=== PATIENT | female | born 1955 | race Caucasian/White ===

== ENCOUNTER 2020-09-05 15:08 | Emergency (ER) | payer MEDICAID ==
[~2020-09-05] VITALS: Ht 157.5 cm; Wt 80.0 kg
[2020-09-05] MEDS ORDERED: CARV3.1231 PO (15:16)
[2020-09-05] MEDS ORDERED: FURO-152 PO (15:17)
[2020-09-05] MEDS ORDERED: MECLIZINE HCL 25 MG TABLET PO ONE (15:45)
[2020-09-05] MEDS ORDERED: ONDANSETRON HCL 4 MG/2 ML VIAL IVP ONE (15:45)
[2020-09-05] MEDS ORDERED: ACETAMINOPHEN 500 MG TABLET PO ONE (15:45)
[2020-09-05] MEDS ORDERED: SODIUM CHLORIDE 0.9% 1,000 ML IV ONE (15:45)
[2020-09-05 16:10] LABS: BASOPHILS % (AUTO) 0.2 % (0.0-2.0); EOSINOPHILS % (AUTO) 4.5 % (1.0-6.0); HEMATOCRIT 34.4 % (36-46); HEMOGLOBIN 10.9 g/dL (12.0-16.0); LYMPHOCYTES # (AUTO) 1.4 K/uL (1.0-4.8); LYMPHOCYTES % (AUTO) 27.3 % (22.0-44.0); MEAN CORPUSCULAR HEMOGLOBIN 25.7 pg (26.0-34.0); MEAN CORPUSCULAR HGB CONC 31.5 G/dL (31.0-37.0); MEAN CORPUSCULAR VOLUME 82 fL (80-100); MONOCYTES # (AUTO) 0.5 K/uL (0.1-1.0); MONOCYTES % (AUTO) 9.3 % (2.0-9.0); NEUTROPHILS # (AUTO) 3.1 K/uL (1.8-7.7); NEUTROPHILS % (AUTO) 58.7 % (40.0-70.0); PLATELET COUNT (AUTO) 214 K/uL (150-450); RED BLOOD CELL COUNT(AUTO) 4.22 MIL/uL (4.00-5.20); RED CELL DISTRIBUTION WIDTH 16.2 % (11.5-14.5)
[2020-09-05 16:22] LABS: CALCIUM, TOTAL 8.8 mg/dL (8.8-10.5); CREATININE 2.75 mg/dL (0.60-1.30); POTASSIUM 3.3 mmol/L (3.5-5.1)
[2020-09-05 16:27] LABS: BILIRUBIN,TOTAL 0.5 mg/dL (0.1-1.0); TOTAL PROTEIN, SERUM 7.1 g/dL (6.4-8.2)
[2020-09-05 17:41] LABS: COVID AG,FIA SOURCE NASOPHARYNGEAL
[2020-09-05 19:06] VITALS: BP 115/77
== END 2020-09-05 19:55 | disposition home or self-care (01) ==
LOC: EMS 15:11
DX: I42.9 Cardiomyopathy, unspecified (principal); I13.0 Hypertensive heart and chronic kidney disease with heart failure and stage 1 through stage 4 chronic kidney disease, or unspecified chronic kidney disease; N18.9 Chronic kidney disease, unspecified; I50.9 Heart failure, unspecified; I25.10 Atherosclerotic heart disease of native coronary artery without angina pectoris; R42 Dizziness and giddiness; Z20.822 Contact with and (suspected) exposure to COVID-19; Z79.899 Other long term (current) drug therapy
CPT/HCPCS: 36415; 70450; 71045; 80053; 83690; 83880; 84484; 85025; 87426; 93005; 96361; 96374; 99285; J2405; J7030

== ENCOUNTER 2020-09-18 21:18 | Inpatient (IN) | payer MEDICAID ==
[~2020-09-18] VITALS: Ht 160 cm; Wt 65.8 kg
[~2020-09-18 21:18] MED LIST: CARV3.1231 PO; FURO-152 PO
[2020-09-18 21:49] LABS: BASOPHILS % (AUTO) 0.1 % (0.0-2.0); EOSINOPHILS % (AUTO) 0.6 % (1.0-6.0); HEMATOCRIT 23.5 % (36-46); HEMOGLOBIN 7.5 g/dL (12.0-16.0); LYMPHOCYTES % (AUTO) 12.9 % (22.0-44.0); MEAN CORPUSCULAR HEMOGLOBIN 26.8 pg (26.0-34.0); MEAN CORPUSCULAR HGB CONC 31.8 G/dL (31.0-37.0); MEAN CORPUSCULAR VOLUME 84 fL (80-100); MONOCYTES # (AUTO) 0.3 K/uL (0.1-1.0); MONOCYTES % (AUTO) 3.8 % (2.0-9.0); NEUTROPHILS # (AUTO) 6.5 K/uL (1.8-7.7); NEUTROPHILS % (AUTO) 82.6 % (40.0-70.0); PLATELET COUNT (AUTO) 169 K/uL (150-450); RED BLOOD CELL COUNT(AUTO) 2.79 MIL/uL (4.00-5.20); RED CELL DISTRIBUTION WIDTH 17.3 % (11.5-14.5)
[2020-09-18 22:01] LABS: INR 1.1 (0.9-1.1); PROTHROMBIN TIME 11.4 SEC (9.4-11.6)
[2020-09-18 22:04] LABS: ALBUMIN 2.4 g/dL (3.4-5.0); BILIRUBIN,TOTAL 0.4 mg/dL (0.1-1.0); CALCIUM, TOTAL 8.1 mg/dL (8.8-10.5); CREATININE 2.23 mg/dL (0.60-1.30); POTASSIUM 4.4 mmol/L (3.5-5.1); TOTAL PROTEIN, SERUM 5.5 g/dL (6.4-8.2)
[2020-09-18 22:06] LABS: TROPONIN I 0.05 ng/mL (0.00-0.05)
[2020-09-18 22:07] LABS: LACTIC ACID 0.9 mmol/L (0.4-2.0)
[2020-09-18] MEDS ORDERED: ASPIRIN 81 MG CHEWABLE TABLET PO ONE (22:45)
[2020-09-18 22:47] LABS: APPEARANCE,URINE CLEAR (CLEAR); BILIRUBIN,URINE NEGATIVE (NEGATIVE); GLUCOSE, URINE (UA) NEGATIVE (NEGATIVE); KETONES,URINE NEGATIVE (NEGATIVE); LEUKOCYTE ESTERASE ,URINE NEGATIVE (NEGATIVE); NITRATE,URINE NEGATIVE (NEGATIVE); OCCULT BLOOD,URINE NEGATIVE (NEGATIVE); PH,URINE 5.5 (5.0-8.0); PROTEIN,URINE NEGATIVE (NEGATIVE); UROBILINOGEN,URINE 0.2 mg/dL (<=1.0)
[2020-09-18 22:52] LABS: AMPHET/METH SCREEN,URINE NEGATIVE (NEGATIVE); BARBITURATE SCREEN, URINE NEGATIVE (NEGATIVE); BENZODIAZEPINES SCREEN,URINE NEGATIVE (NEGATIVE); CANNABINOID SCREEN,URINE NEGATIVE (NEGATIVE); COCAINE SCREEN,URINE NEGATIVE (NEGATIVE); METHADONE SCREEN, URINE NEGATIVE (NEGATIVE); OPIATE SCREEN,URINE POSITIVE (NEGATIVE)
[2020-09-18 22:56] LABS: PHENCYCLIDINE SCREEN,URINE NEGATIVE (NEGATIVE)
[2020-09-18] MEDS ORDERED: ASPIRIN 300 MG RECTAL SUPPOSITORY PR ONE (23:45)
[2020-09-18] MEDS ORDERED: ONDANSETRON HCL 4 MG/2 ML VIAL IVP PRN (23:45)
[2020-09-18] MEDS ORDERED: ACETAMINOPHEN 325 MG TABLET PO PRN (23:45)
[2020-09-18] MEDS: CARVEDILOL 3.125 MG TABLET PO SCH (23:57)
[2020-09-19] VITALS (19 sets, daily range): BP systolic 74–133; BP diastolic 45–72
[2020-09-19] MEDS: HEPARIN SODIUM,PORCINE 5,000 UNITS/ML VIAL SQ SCH ×2 (00:06→08:00)
[2020-09-19 00:32] LABS: % IRON SATURATION 22.5 % (22-44)
[2020-09-19 00:39] LABS: COVID AG,FIA SOURCE NASOPHARYNGEAL
[2020-09-19 07:59] LABS: BASOPHILS % (AUTO) 0.2 % (0.0-2.0); EOSINOPHILS % (AUTO) 1.1 % (1.0-6.0); HEMATOCRIT 21.7 % (36-46); LYMPHOCYTES # (AUTO) 1.2 K/uL (1.0-4.8); LYMPHOCYTES % (AUTO) 15.4 % (22.0-44.0); MEAN CORPUSCULAR HEMOGLOBIN 26.6 pg (26.0-34.0); MEAN CORPUSCULAR HGB CONC 31.6 G/dL (31.0-37.0); MEAN CORPUSCULAR VOLUME 84 fL (80-100); MONOCYTES # (AUTO) 0.3 K/uL (0.1-1.0); MONOCYTES % (AUTO) 3.7 % (2.0-9.0); NEUTROPHILS # (AUTO) 6.1 K/uL (1.8-7.7); NEUTROPHILS % (AUTO) 79.6 % (40.0-70.0); PLATELET COUNT (AUTO) 194 K/uL (150-450); RED BLOOD CELL COUNT(AUTO) 2.58 MIL/uL (4.00-5.20)
[2020-09-19 08:04] LABS: CREATININE 2.07 mg/dL (0.60-1.30); HEMOGLOBIN 6.9 g/dL (12.0-16.0); POTASSIUM 4.9 mmol/L (3.5-5.1)
[2020-09-19 08:09] LABS: CHOL/HDL RATIO 4.8 (3.9-5.7)
[2020-09-19] MEDS: CARVEDILOL 3.125 MG TABLET PO SCH (09:00)
[2020-09-19] MEDS ORDERED: FUROSEMIDE 20 MG TABLET PO SCH (09:00)
[2020-09-19] MEDS ORDERED: ONDANSETRON HCL 4 MG/2 ML VIAL IVP PRN (11:45)
[2020-09-19] MEDS ORDERED: MORPHINE SULFATE 2 MG/ML SYRINGE IVP PRN (11:45)
[2020-09-19] MEDS ORDERED: MAGNESIUM HYDROXIDE SUSPENSION 30 ML UDCUP PO PRN (11:45)
[2020-09-19] MEDS ORDERED: ZOLPIDEM TARTRATE 5 MG TABLET PO PRN (11:45)
[2020-09-19] MEDS ORDERED: BISACODYL 10 MG RECTAL RECTAL SUPPOSITORY PR PRN (11:45)
[2020-09-19] MEDS ORDERED: ACETAMINOPHEN 325 MG TABLET PO PRN (11:45)
[2020-09-19] MEDS ORDERED: HYDROCODONE/ACETAMINOPHEN 5-325 MG TABLET PO PRN (11:45)
[2020-09-19] MEDS ORDERED: SODIUM CHLORIDE 0.9% 500 ML IV ONE (12:00)
[2020-09-19] MEDS ORDERED: SODIUM CHLORIDE 0.9% 1,000 ML ONE (13:17)
[2020-09-19] MEDS: PANTOPRAZOLE SODIUM 80 MG in SODIUM CHLORIDE 0.9% 100 ML IV SCH ×2 (16:48→22:27)
[2020-09-19 17:29] LABS: HEMATOCRIT 25.2 % (36-46)
[2020-09-19 18:02] LABS: CALCIUM, TOTAL 8.1 mg/dL (8.8-10.5); CREATININE 2.24 mg/dL (0.60-1.30); POTASSIUM 4.4 mmol/L (3.5-5.1)
[2020-09-19] MEDS: DOCUSATE SODIUM 100 MG CAPSULE PO SCH (21:00)
[2020-09-19 21:55] LABS: HEMATOCRIT 32.3 % (36-46); HEMOGLOBIN 9.8 g/dL (12.0-16.0)
[2020-09-20] MEDS ORDERED: SODIUM CHLORIDE 0.9% 1,000 ML ONE ×2 (03:54→09:50)
[2020-09-20 04:05] VITALS: BP 122/71
[2020-09-20 06:29] LABS: HEMOGLOBIN 9.5 g/dL (12.0-16.0)
[2020-09-20 07:22] VITALS: BP 116/67
[2020-09-20] MEDS: PANTOPRAZOLE SODIUM 80 MG in SODIUM CHLORIDE 0.9% 100 ML IV SCH ×2 (08:34→20:42)
[2020-09-20] MEDS: DOCUSATE SODIUM 100 MG CAPSULE PO SCH ×2 (08:38→20:42)
[2020-09-20] MEDS ORDERED: PANTOPRAZOLE SODIUM 40 MG DR TABLET PO SCH (09:00)
[2020-09-20] MEDS ORDERED: EPINEPHrine 1:10,000 [1 MG/10 ML] SYRINGE ONE (09:50)
[2020-09-20 12:48] LABS: HEMATOCRIT 28.2 % (36-46); HEMOGLOBIN 8.8 g/dL (12.0-16.0)
[2020-09-20] MEDS ORDERED: SODIUM CHLORIDE 0.45% 1,000 ML IV ONE (13:30)
[2020-09-20] MEDS ORDERED: SODIUM CHLORIDE 0.45% 1,000 ML IV SCH (15:30)
[2020-09-20 16:20] VITALS: BP 137/60
[2020-09-20 17:56] LABS: CALCIUM, TOTAL 8.3 mg/dL (8.8-10.5); CREATININE 2.02 mg/dL (0.60-1.30); MAGNESIUM 1.9 mg/dL (1.80-2.40); PHOSPHORUS 3.5 mg/dL (2.5-4.9); POTASSIUM 3.9 mmol/L (3.5-5.1)
[2020-09-20 19:36] VITALS: BP 106/60
[2020-09-20 20:07] LABS: HEMATOCRIT 25.7 % (36-46); HEMOGLOBIN 8.3 g/dL (12.0-16.0)
[2020-09-20 23:45] VITALS: BP 110/46
[2020-09-21] VITALS (14 sets, daily range): BP systolic 98–148; BP diastolic 57–74
[2020-09-21 05:03] LABS: HEMOGLOBIN 7.9 g/dL (12.0-16.0)
[2020-09-21] MEDS: PANTOPRAZOLE SODIUM 80 MG in SODIUM CHLORIDE 0.9% 100 ML IV SCH (05:11)
[2020-09-21 05:15] LABS: CALCIUM, TOTAL 8.4 mg/dL (8.8-10.5); CREATININE 2.15 mg/dL (0.60-1.30); MAGNESIUM 1.9 mg/dL (1.80-2.40); PHOSPHORUS 3.6 mg/dL (2.5-4.9)
[2020-09-21] MEDS ORDERED: LIDOCAINE/PF 2% 5 ML VIAL IM ONE (05:34)
[2020-09-21] MEDS ORDERED: PROPOFOL 1% 20 ML VIAL IVP ONE (05:34)
[2020-09-21] MEDS: DOCUSATE SODIUM 100 MG CAPSULE PO SCH ×2 (09:00→21:00)
[2020-09-21] MEDS: DEXTROSE 5%-WATER 1,000 ML IV SCH ×2 (13:29→19:48)
[2020-09-21] MEDS ORDERED: SODIUM CHLORIDE 0.9% 250 ML IV ONE (15:01)
[2020-09-22] VITALS (23 sets, daily range): BP systolic 79–132; BP diastolic 39–68
[2020-09-22] MEDS: DEXTROSE 5%-WATER 1,000 ML IV SCH ×2 (05:23→14:59)
[2020-09-22 05:26] LABS: BASOPHILS % (AUTO) 0.2 % (0.0-2.0); EOSINOPHILS % (AUTO) 0.5 % (1.0-6.0); HEMATOCRIT 22.8 % (36-46); HEMOGLOBIN 7.3 g/dL (12.0-16.0); LYMPHOCYTES # (AUTO) 1.3 K/uL (1.0-4.8); LYMPHOCYTES % (AUTO) 14.4 % (22.0-44.0); MEAN CORPUSCULAR HEMOGLOBIN 28.4 pg (26.0-34.0); MEAN CORPUSCULAR HGB CONC 32.1 G/dL (31.0-37.0); MEAN CORPUSCULAR VOLUME 89 fL (80-100); MONOCYTES # (AUTO) 0.7 K/uL (0.1-1.0); MONOCYTES % (AUTO) 7.3 % (2.0-9.0); NEUTROPHILS # (AUTO) 7.1 K/uL (1.8-7.7); NEUTROPHILS % (AUTO) 77.6 % (40.0-70.0); PLATELET COUNT (AUTO) 166 K/uL (150-450); RED BLOOD CELL COUNT(AUTO) 2.58 MIL/uL (4.00-5.20); RED CELL DISTRIBUTION WIDTH 17.2 % (11.5-14.5)
[2020-09-22 05:32] LABS: CALCIUM, TOTAL 8.1 mg/dL (8.8-10.5); CREATININE 2.25 mg/dL (0.60-1.30); POTASSIUM 4.1 mmol/L (3.5-5.1)
[2020-09-22 06:00] LABS: MAGNESIUM 1.8 mg/dL (1.80-2.40); PHOSPHORUS 2.2 mg/dL (2.5-4.9)
[2020-09-22] MEDS: DOCUSATE SODIUM 100 MG CAPSULE PO SCH ×2 (08:24→21:00)
[2020-09-22] MEDS ORDERED: SODIUM CHLORIDE 0.9% 250 ML IV ONE (09:10)
[2020-09-22] MEDS: PANTOPRAZOLE SODIUM 80 MG in SODIUM CHLORIDE 0.9% 100 ML IV SCH ×2 (13:39→21:37)
[2020-09-23] VITALS (14 sets, daily range): BP systolic 86–110; BP diastolic 53–67
[2020-09-23] MEDS: DEXTROSE 5%-WATER 1,000 ML IV SCH ×3 (01:50→15:40)
[2020-09-23 07:20] LABS: BASOPHILS % (AUTO) 0.3 % (0.0-2.0); EOSINOPHILS % (AUTO) 2.9 % (1.0-6.0); HEMATOCRIT 26.9 % (36-46); HEMOGLOBIN 8.5 g/dL (12.0-16.0); LYMPHOCYTES # (AUTO) 1.2 K/uL (1.0-4.8); LYMPHOCYTES % (AUTO) 19.7 % (22.0-44.0); MEAN CORPUSCULAR HEMOGLOBIN 28.7 pg (26.0-34.0); MEAN CORPUSCULAR HGB CONC 31.4 G/dL (31.0-37.0); MEAN CORPUSCULAR VOLUME 92 fL (80-100); MONOCYTES # (AUTO) 0.4 K/uL (0.1-1.0); MONOCYTES % (AUTO) 6.4 % (2.0-9.0); NEUTROPHILS # (AUTO) 4.4 K/uL (1.8-7.7); NEUTROPHILS % (AUTO) 70.7 % (40.0-70.0); PLATELET COUNT (AUTO) 124 K/uL (150-450); RED BLOOD CELL COUNT(AUTO) 2.94 MIL/uL (4.00-5.20); RED CELL DISTRIBUTION WIDTH 16.8 % (11.5-14.5)
[2020-09-23 07:37] LABS: CREATININE 2.28 mg/dL (0.60-1.30); POTASSIUM 3.6 mmol/L (3.5-5.1)
[2020-09-23] MEDS: DOCUSATE SODIUM 100 MG CAPSULE PO SCH ×2 (07:38→21:00)
[2020-09-23] MEDS: PANTOPRAZOLE SODIUM 80 MG in SODIUM CHLORIDE 0.9% 100 ML IV SCH ×2 (07:38→17:58)
[2020-09-23] MEDS ORDERED: SODIUM BICARBONATE [ADULT] 8.4% 50 MEQ/50 ML SYRINGE IVP ONE (10:30)
[2020-09-23] MEDS ORDERED: LORazepam 2 MG/ML VIAL IVP ONE (14:00)
[2020-09-23 15:08] LABS: HEMATOCRIT 22.5 % (36-46); HEMOGLOBIN 7.4 g/dL (12.0-16.0)
[2020-09-23] MEDS ORDERED: SODIUM CHLORIDE 0.9% 500 ML IV ONE ×2 (17:07→17:35)
[2020-09-23] MEDS ORDERED: *CLINICAL-PERIPHERAL PARENTERAL NUTRITION DOSING CLINICAL ONE (17:45)
[2020-09-23] MEDS ORDERED: DEXTROSE 5%-WATER 1,000 ML IV SCH (22:00)
[2020-09-23] MEDS ORDERED: [UNRECOGNIZED DRUG - REMARK] IV SCH ×6 (22:00)
[2020-09-24] VITALS (14 sets, daily range): BP systolic 72–99; BP diastolic 51–61
[2020-09-24] MEDS: PANTOPRAZOLE SODIUM 80 MG in SODIUM CHLORIDE 0.9% 100 ML IV SCH ×3 (03:49→23:02)
[2020-09-24] MEDS ORDERED: SODIUM CHLORIDE 0.9% 1,000 ML IV ONE (04:00)
[2020-09-24 04:30] LABS: BASOPHILS % (AUTO) 0.2 % (0.0-2.0); EOSINOPHILS % (AUTO) 3.4 % (1.0-6.0); HEMATOCRIT 21.4 % (36-46); LYMPHOCYTES # (AUTO) 1.4 K/uL (1.0-4.8); LYMPHOCYTES % (AUTO) 19.2 % (22.0-44.0); MEAN CORPUSCULAR HEMOGLOBIN 29.3 pg (26.0-34.0); MEAN CORPUSCULAR HGB CONC 32.7 G/dL (31.0-37.0); MEAN CORPUSCULAR VOLUME 90 fL (80-100); MONOCYTES # (AUTO) 0.4 K/uL (0.1-1.0); MONOCYTES % (AUTO) 5.2 % (2.0-9.0); NEUTROPHILS # (AUTO) 5.1 K/uL (1.8-7.7); PLATELET COUNT (AUTO) 124 K/uL (150-450); RED BLOOD CELL COUNT(AUTO) 2.38 MIL/uL (4.00-5.20); RED CELL DISTRIBUTION WIDTH 16.9 % (11.5-14.5)
[2020-09-24 04:38] LABS: CALCIUM, TOTAL 7.2 mg/dL (8.8-10.5); CREATININE 2.13 mg/dL (0.60-1.30); MAGNESIUM 1.5 mg/dL (1.80-2.40); PHOSPHORUS 2.1 mg/dL (2.5-4.9)
[2020-09-24] MEDS ORDERED: SODIUM CHLORIDE 0.9% 250 ML IV ONE (06:16)
[2020-09-24] MEDS: POTASSIUM CHL 10 MEQ/WATER 50 ML IV SCH ×4 (06:16→12:15)
[2020-09-24] MEDS ORDERED: MAGNESIUM SULFATE 1 GM in DEXTROSE 5%-WATER 50 ML IV ONE (06:30)
[2020-09-24] MEDS: DOCUSATE SODIUM 100 MG CAPSULE PO SCH ×2 (09:00→20:53)
[2020-09-24] MEDS ORDERED: PANTOPRAZOLE SODIUM 40 MG/VIAL IVP SCH (09:00)
[2020-09-24] MEDS ORDERED: POTASSIUM PHOS,M-BASIC-D-BASIC 10 MMOL in DEXTROSE 5%-WATER 100 ML IV ONE (09:00)
[2020-09-24] MEDS ORDERED: POTASSIUM CHL 10 MEQ/WATER 50 ML IV SCH (09:00)
[2020-09-24] MEDS ORDERED: MAGNESIUM SULFATE 2 GM/WATER 50 ML IV ONE (11:15)
[2020-09-24] MEDS ORDERED: SODIUM PHOS,M-BASIC-D-BASIC 20 MMOL in DEXTROSE 5%-WATER 150 ML IV ONE (11:15)
[2020-09-24] MEDS ORDERED: WATER FOR INJECTION,STERILE 500 ML in DEXTROSE 5%-WATER 500 ML IV SCH (11:15)
[2020-09-24] MEDS ORDERED: SODIUM CHLORIDE 0.9% 1,000 ML IV SCH (11:30)
[2020-09-24 14:06] LABS: INR 1.3 (0.9-1.1); PROTHROMBIN TIME 13.5 SEC (9.4-11.6)
[2020-09-24 15:36] LABS: BASOPHILS % (AUTO) 0.2 % (0.0-2.0); EOSINOPHILS % (AUTO) 2.6 % (1.0-6.0); HEMATOCRIT 25.4 % (36-46); HEMOGLOBIN 8.2 g/dL (12.0-16.0); LYMPHOCYTES % (AUTO) 14.7 % (22.0-44.0); MEAN CORPUSCULAR HEMOGLOBIN 29.2 pg (26.0-34.0); MEAN CORPUSCULAR HGB CONC 32.2 G/dL (31.0-37.0); MEAN CORPUSCULAR VOLUME 91 fL (80-100); MONOCYTES # (AUTO) 0.4 K/uL (0.1-1.0); MONOCYTES % (AUTO) 5.1 % (2.0-9.0); NEUTROPHILS # (AUTO) 5.5 K/uL (1.8-7.7); NEUTROPHILS % (AUTO) 77.4 % (40.0-70.0); PLATELET COUNT (AUTO) 109 K/uL (150-450); RED BLOOD CELL COUNT(AUTO) 2.79 MIL/uL (4.00-5.20); RED CELL DISTRIBUTION WIDTH 16.4 % (11.5-14.5)
[2020-09-24] MEDS ORDERED: SODIUM ACETATE IV SCH ×8 (22:00)
[2020-09-24] MEDS ORDERED: POTASSIUM ACETATE IV SCH ×8 (22:00)
[2020-09-24] MEDS ORDERED: PPN IV SCH ×8 (22:00)
[2020-09-24] MEDS ORDERED: [UNRECOGNIZED DRUG - OTHER] IV SCH ×8 (22:00)
[2020-09-25] VITALS (13 sets, daily range): BP systolic 49–175; BP diastolic 26–75
[2020-09-25] MEDS: DOCUSATE SODIUM 100 MG CAPSULE PO SCH ×2 (09:00→21:00)
[2020-09-25] MEDS: PANTOPRAZOLE SODIUM 80 MG in SODIUM CHLORIDE 0.9% 100 ML IV SCH ×2 (09:11→20:05)
[2020-09-25] MEDS: NOREPINEPHRINE 4 MG/D5%-WATER 250 ML IV PRN ×4 (12:00→22:46)
[2020-09-25 12:42] LABS: BASOPHILS % (AUTO) 0.2 % (0.0-2.0); LYMPHOCYTES # (AUTO) 1.1 K/uL (1.0-4.8); MEAN CORPUSCULAR HGB CONC 32.7 G/dL (31.0-37.0); MEAN CORPUSCULAR VOLUME 92 fL (80-100); MONOCYTES # (AUTO) 0.3 K/uL (0.1-1.0); MONOCYTES % (AUTO) 4.4 % (2.0-9.0); NEUTROPHILS # (AUTO) 5.5 K/uL (1.8-7.7); NEUTROPHILS % (AUTO) 77.4 % (40.0-70.0); PLATELET COUNT (AUTO) 118 K/uL (150-450); RED BLOOD CELL COUNT(AUTO) 1.81 MIL/uL (4.00-5.20); RED CELL DISTRIBUTION WIDTH 16.7 % (11.5-14.5)
[2020-09-25 12:52] LABS: HEMOGLOBIN 5.4 g/dL (12.0-16.0)
[2020-09-25 12:53] LABS: HEMATOCRIT 16.6 % (36-46)
[2020-09-25] MEDS ORDERED: SODIUM CHLORIDE 0.9% 250 ML IV ONE ×2 (12:56→18:23)
[2020-09-25 13:16] LABS: CREATININE 1.99 mg/dL (0.60-1.30); MAGNESIUM 2.3 mg/dL (1.80-2.40); PHOSPHORUS 3.5 mg/dL (2.5-4.9); POTASSIUM 4.2 mmol/L (3.5-5.1)
[2020-09-25] MEDS ORDERED: SODIUM CHLORIDE 0.9% 500 ML IV ONE (13:48)
[2020-09-25] MEDS: ALBUMIN HUMAN 25%-25GM/100ML 100 ML IV SCH ×2 (14:11→21:54)
[2020-09-25] MEDS ORDERED: RAPID SEQUENCE KIT [RSI] 1 EACH KIT MISC ONE (14:13)
[2020-09-25] MEDS ORDERED: DOPamine 400MG/D5W[STANDARD] 250 ML IV ONE (14:26)
[2020-09-25] MEDS ORDERED: METOCLOPRAMIDE HCL 5 MG/ML 2 ML VIAL IVP ONE (14:30)
[2020-09-25] MEDS ORDERED: DOPamine 400MG/D5W[STANDARD] 250 ML IV PRN (15:00)
[2020-09-25] MEDS ORDERED: PHENYLEPHRINE 200 MG/D5%-WATER 250 ML IV PRN (15:00)
[2020-09-25] MEDS ORDERED: PROPOFOL 1000 MG/ISO-OSM 100 ML ONE (15:07)
[2020-09-25 15:56] LABS: ABG A-A DIFF O2 260.9 mmHg (10-20.0); ABG CARBOXYHEMOGLOBIN 0.3 % (0.0-1.5); ABG HCO3 11.5 mmol/L (22.0-26.0); ABG METHEMOGLOBIN 0.5 % (0.0-1.5); ABG OXYGEN CONTENT 13.6 mL/dL (15.0-23.0); ABG OXYGEN SATURATION 99.4 % (95.0-98.0); ABG OXYHEMOGLOBIN 98.6 % (94.0-100.0); ABG PCO2 37 mmHg (35-45); PO2, ARTERIAL BG 416.3 mmHg (79.0-87.0); SOURCE, BLOOD GAS ARTERIAL; TEMPERATURE, FAHRENHEIT, BG 98.1 FAHREN (96.0-98.6)
[2020-09-25 15:57] LABS: ABG PH 7.114 (7.35-7.450); O2 DEVICE,BLOOD GAS VENTILATOR (ROOM AIR); PEEP,BG 5 cm H2O; SITE, BLOOD GAS ARTERIAL LINE; VT, ABG 375 ml
[2020-09-25] MEDS: PROPOFOL 1000 MG/ISO-OSM 100 ML IV PRN ×2 (16:00→22:45)
[2020-09-25] MEDS ORDERED: EPINEPHrine 1:10,000 [1 MG/10 ML] SYRINGE ONE (16:58)
[2020-09-25] MEDS ORDERED: PIPERACILLIN SODIUM/TAZOBACTAM 2.25 GM in DEXTROSE 5%-WATER 50 ML IV SCH (17:00)
[2020-09-25] MEDS ORDERED: HEPARIN SODIUM,PORCINE 1,000 UNITS/ML VIAL IVP ONE (17:15)
[2020-09-25 17:31] LABS: GLUCOSE,POINT OF CARE 196 MG/DL (70-110)
[2020-09-25] MEDS: SODIUM BICARBONATE 150 MEQ in DEXTROSE 5%-WATER 1,000 ML IV SCH (18:25)
[2020-09-25] MEDS ORDERED: POTASSIUM CHLORIDE 15 MEQ in NXSTAGE RFP-402 K0/CA3 5,000 ML IRRIG PRN (18:45)
[2020-09-25 19:39] LABS: HEMATOCRIT 28.4 % (36-46); HEMOGLOBIN 9.3 g/dL (12.0-16.0)
[2020-09-25 20:05] LABS: GLUCOSE,POINT OF CARE 281 MG/DL (70-110)
[2020-09-25] MEDS ORDERED: PANTOPRAZOLE SODIUM 40 MG/VIAL IVP SCH (21:00)
[2020-09-25] MEDS ORDERED: SODIUM ACETATE IV SCH ×8 (22:00)
[2020-09-25] MEDS ORDERED: [UNRECOGNIZED DRUG - OTHER] IV SCH ×8 (22:00)
[2020-09-25] MEDS ORDERED: PPN IV SCH ×8 (22:00)
[2020-09-25] MEDS ORDERED: POTASSIUM ACETATE IV SCH ×8 (22:00)
[2020-09-26] VITALS (11 sets, daily range): BP systolic 112–137; BP diastolic 44–51
[2020-09-26 00:04] LABS: CALCIUM, TOTAL 7.3 mg/dL (8.8-10.5); CREATININE 2.18 mg/dL (0.60-1.30); POTASSIUM 3.1 mmol/L (3.5-5.1)
[2020-09-26 00:08] LABS: MAGNESIUM 1.8 mg/dL (1.80-2.40); PHOSPHORUS 2.9 mg/dL (2.5-4.9)
[2020-09-26] MEDS: PIPERACILLIN/TAZO 3.375 GM/D5W 50 ML IV SCH ×4 (01:05→17:13)
[2020-09-26 02:05] LABS: HEMOGLOBIN 7.8 g/dL (12.0-16.0)
[2020-09-26] MEDS ORDERED: SODIUM CHLORIDE 0.9% 500 ML IV ONE (03:38)
[2020-09-26] MEDS ORDERED: SODIUM CHLORIDE 0.9% 250 ML IV ONE ×2 (03:38→20:25)
[2020-09-26] MEDS: PROPOFOL 1000 MG/ISO-OSM 100 ML IV PRN ×3 (04:08→18:06)
[2020-09-26] MEDS: PANTOPRAZOLE SODIUM 80 MG in SODIUM CHLORIDE 0.9% 100 ML IV SCH ×2 (04:08→15:08)
[2020-09-26] MEDS: POTASSIUM CHLORIDE 20 MEQ in NXSTAGE RFP-402 K0/CA3 5,000 ML IRRIG PRN ×2 (04:09→23:25)
[2020-09-26] MEDS: ALBUMIN HUMAN 25%-25GM/100ML 100 ML IV SCH ×3 (05:14→21:48)
[2020-09-26 05:54] LABS: BASOPHILS % (AUTO) 0.2 % (0.0-2.0); EOSINOPHILS % (AUTO) 1.8 % (1.0-6.0); HEMOGLOBIN 7.7 g/dL (12.0-16.0); LYMPHOCYTES # (AUTO) 1.2 K/uL (1.0-4.8); LYMPHOCYTES % (AUTO) 10.2 % (22.0-44.0); MEAN CORPUSCULAR HEMOGLOBIN 27.8 pg (26.0-34.0); MEAN CORPUSCULAR HGB CONC 33.3 G/dL (31.0-37.0); MEAN CORPUSCULAR VOLUME 83 fL (80-100); MONOCYTES # (AUTO) 0.2 K/uL (0.1-1.0); MONOCYTES % (AUTO) 2.1 % (2.0-9.0); RED BLOOD CELL COUNT(AUTO) 2.76 MIL/uL (4.00-5.20); RED CELL DISTRIBUTION WIDTH 16.1 % (11.5-14.5)
[2020-09-26 05:56] LABS: NEUTROPHILS % (AUTO) 85.7 % (40.0-70.0)
[2020-09-26 06:12] LABS: CALCIUM, TOTAL 7.9 mg/dL (8.8-10.5); CREATININE 1.92 mg/dL (0.60-1.30); MAGNESIUM 1.6 mg/dL (1.80-2.40); PHOSPHORUS 2.4 mg/dL (2.5-4.9); POTASSIUM 3.1 mmol/L (3.5-5.1)
[2020-09-26] MEDS: SODIUM BICARBONATE 150 MEQ in DEXTROSE 5%-WATER 1,000 ML IV SCH (08:13)
[2020-09-26] MEDS: DOCUSATE SODIUM 100 MG CAPSULE PO SCH ×2 (08:14→19:31)
[2020-09-26 09:32] LABS: PLATELET COUNT (AUTO) 76 K/uL (150-450)
[2020-09-26 09:35] LABS: PLATELET MORPHOLOGY COMMENT LARGE PLTS PRESENT
[2020-09-26 10:49] LABS: SITE, BLOOD GAS ARTERIAL LINE
[2020-09-26 10:50] LABS: ABG BASE EXCESS 1.1 mmol/L (-2.0-3.0); ABG HCO3 25.5 mmol/L (22.0-26.0); ABG PCO2 31 mmHg (35-45); ABG PH 7.506 (7.35-7.450); PO2, ARTERIAL BG 155.7 mmHg (79.0-87.0); SOURCE, BLOOD GAS ARTERIAL; TEMPERATURE, FAHRENHEIT, BG 97.5 FAHREN (96.0-98.6)
[2020-09-26 10:52] LABS: ABG A-A DIFF O2 58.1 mmHg (10-20.0); ABG CARBOXYHEMOGLOBIN 0.8 % (0.0-1.5); ABG METHEMOGLOBIN 0.3 % (0.0-1.5); ABG OXYGEN CONTENT 10.4 mL/dL (15.0-23.0); ABG TOTAL HEMOGLOBIN 7.3 G/dL (12.0-18.0); O2 DEVICE,BLOOD GAS VENTILATOR (ROOM AIR)
[2020-09-26 10:54] LABS: PEEP,BG 5 cm H2O; VT, ABG 375 ml
[2020-09-26] MEDS: POTASSIUM CHL 10 MEQ/WATER 50 ML IV SCH ×4 (10:59→14:17)
[2020-09-26] MEDS ORDERED: MAGNESIUM SULFATE 2 GM/WATER 50 ML IV ONE (11:00)
[2020-09-26] MEDS: CALCIUM GLUCONATE 100 MG/ML 10 ML IVP SCH ×3 (11:23→17:13)
[2020-09-26 11:30] LABS: HEMATOCRIT 20.2 % (36-46); HEMOGLOBIN 6.9 g/dL (12.0-16.0)
[2020-09-26 13:32] LABS: HEMATOCRIT 22.1 % (36-46); HEMOGLOBIN 7.3 g/dL (12.0-16.0)
[2020-09-26] MEDS: NOREPINEPHRINE 4 MG/D5%-WATER 250 ML IV PRN (17:14)
[2020-09-26 18:50] LABS: HEMATOCRIT 19.1 % (36-46)
[2020-09-26 18:51] LABS: HEMOGLOBIN 6.4 g/dL (12.0-16.0)
[2020-09-26 19:42] LABS: HEMATOCRIT 20.4 % (36-46); HEMOGLOBIN 6.8 g/dL (12.0-16.0)
[2020-09-26] MEDS ORDERED: POTASSIUM ACETATE IV SCH ×8 (22:00)
[2020-09-26] MEDS ORDERED: SODIUM ACETATE IV SCH ×8 (22:00)
[2020-09-26] MEDS ORDERED: PPN IV SCH ×8 (22:00)
[2020-09-26] MEDS ORDERED: [UNRECOGNIZED DRUG - OTHER] IV SCH ×8 (22:00)
[2020-09-27] VITALS (13 sets, daily range): BP systolic 105–128; BP diastolic 24–53
[2020-09-27] MEDS: PIPERACILLIN/TAZO 3.375 GM/D5W 50 ML IV SCH ×3 (00:02→12:13)
[2020-09-27] MEDS: PROPOFOL 1000 MG/ISO-OSM 100 ML IV PRN ×3 (00:02→17:31)
[2020-09-27] MEDS: PANTOPRAZOLE SODIUM 80 MG in SODIUM CHLORIDE 0.9% 100 ML IV SCH ×3 (01:04→21:19)
[2020-09-27 04:44] LABS: BASOPHILS % (AUTO) 0.2 % (0.0-2.0); EOSINOPHILS % (AUTO) 2.5 % (1.0-6.0); HEMATOCRIT 21.4 % (36-46); HEMOGLOBIN 7.1 g/dL (12.0-16.0); LYMPHOCYTES # (AUTO) 0.6 K/uL (1.0-4.8); LYMPHOCYTES % (AUTO) 6.5 % (22.0-44.0); MEAN CORPUSCULAR HEMOGLOBIN 27.9 pg (26.0-34.0); MEAN CORPUSCULAR HGB CONC 33.3 G/dL (31.0-37.0); MEAN CORPUSCULAR VOLUME 84 fL (80-100); MONOCYTES # (AUTO) 0.2 K/uL (0.1-1.0); MONOCYTES % (AUTO) 2.6 % (2.0-9.0); NEUTROPHILS # (AUTO) 7.7 K/uL (1.8-7.7); PLATELET COUNT (AUTO) 57 K/uL (150-450); RED BLOOD CELL COUNT(AUTO) 2.55 MIL/uL (4.00-5.20); RED CELL DISTRIBUTION WIDTH 16.1 % (11.5-14.5)
[2020-09-27 04:56] LABS: NEUTROPHILS % (AUTO) 88.2 % (40.0-70.0)
[2020-09-27] MEDS: ALBUMIN HUMAN 25%-25GM/100ML 100 ML IV SCH ×3 (05:04→22:26)
[2020-09-27 05:06] LABS: ALBUMIN 2.8 g/dL (3.4-5.0); BILIRUBIN,TOTAL 1.1 mg/dL (0.1-1.0); CALCIUM, TOTAL 8.4 mg/dL (8.8-10.5); CREATININE 1.42 mg/dL (0.60-1.30); MAGNESIUM 2.1 mg/dL (1.80-2.40); POTASSIUM 3.9 mmol/L (3.5-5.1); TOTAL PROTEIN, SERUM 4.6 g/dL (6.4-8.2)
[2020-09-27] MEDS: DOCUSATE SODIUM 100 MG CAPSULE PO SCH ×2 (09:00→21:00)
[2020-09-27 09:22] LABS: ABG BASE EXCESS 6.2 mmol/L (-2.0-3.0); ABG CARBOXYHEMOGLOBIN 0.5 % (0.0-1.5); ABG HCO3 29.6 mmol/L (22.0-26.0); ABG METHEMOGLOBIN 0.3 % (0.0-1.5); ABG OXYGEN CONTENT 10.6 mL/dL (15.0-23.0); ABG OXYGEN SATURATION 98.9 % (95.0-98.0); ABG OXYHEMOGLOBIN 98.1 % (94.0-100.0); ABG PCO2 44 mmHg (35-45); ABG PH 7.455 (7.35-7.450); ABG TOTAL HEMOGLOBIN 7.4 G/dL (12.0-18.0); PO2, ARTERIAL BG 158.4 mmHg (79.0-87.0); SITE, BLOOD GAS ARTERIAL LINE; SOURCE, BLOOD GAS ARTERIAL; TEMPERATURE, FAHRENHEIT, BG 97.3 FAHREN (96.0-98.6)
[2020-09-27 09:23] LABS: O2 DEVICE,BLOOD GAS VENTILATOR (ROOM AIR); PEEP,BG 5 cm H2O; VT, ABG 375 ml
[2020-09-27] MEDS: HEPARIN SODIUM,PORCINE 1,000 UNITS/ML VIAL IVP PRN ×2 (09:57→09:59)
[2020-09-27 10:35] LABS: HEMATOCRIT 21.1 % (36-46)
[2020-09-27] MEDS: CHOLECALCIFEROL (VIT D3) 5,000 [125 MCG] UNITS CAPSULE PO SCH (13:24)
[2020-09-27] MEDS: PIPERACILLIN SODIUM/TAZOBACTAM 2.25 GM in DEXTROSE 5%-WATER 50 ML IV SCH ×2 (17:32→23:18)
[2020-09-27] MEDS ORDERED: SODIUM CHLORIDE 0.9% 500 ML IV ONE (18:02)
[2020-09-27 21:20] LABS: HEMATOCRIT 25.1 % (36-46); HEMOGLOBIN 8.4 g/dL (12.0-16.0)
[2020-09-27] MEDS ORDERED: SODIUM CHLORIDE 0.9% 250 ML IV ONE (23:23)
[2020-09-28] VITALS: BP 119/46
[2020-09-28] MEDS ORDERED: SODIUM CHLORIDE 0.9% 500 ML IV ONE (02:10)
[2020-09-28] MEDS: PROPOFOL 1000 MG/ISO-OSM 100 ML IV PRN ×2 (02:12→08:45)
[2020-09-28 04:00] VITALS: BP 125/54
[2020-09-28] MEDS: PIPERACILLIN SODIUM/TAZOBACTAM 2.25 GM in DEXTROSE 5%-WATER 50 ML IV SCH ×4 (05:03→22:59)
[2020-09-28] MEDS: ALBUMIN HUMAN 25%-25GM/100ML 100 ML IV SCH ×3 (05:03→22:58)
[2020-09-28] MEDS: PANTOPRAZOLE SODIUM 80 MG in SODIUM CHLORIDE 0.9% 100 ML IV SCH ×2 (06:27→13:58)
[2020-09-28 07:02] LABS: BASOPHILS % (AUTO) 0.3 % (0.0-2.0); EOSINOPHILS % (AUTO) 1.1 % (1.0-6.0); HEMATOCRIT 24.1 % (36-46); HEMOGLOBIN 8.2 g/dL (12.0-16.0); LYMPHOCYTES # (AUTO) 0.5 K/uL (1.0-4.8); LYMPHOCYTES % (AUTO) 6.6 % (22.0-44.0); MEAN CORPUSCULAR HGB CONC 33.8 G/dL (31.0-37.0); MEAN CORPUSCULAR VOLUME 86 fL (80-100); MONOCYTES # (AUTO) 0.2 K/uL (0.1-1.0); MONOCYTES % (AUTO) 3.3 % (2.0-9.0); NEUTROPHILS # (AUTO) 6.3 K/uL (1.8-7.7); PLATELET COUNT (AUTO) 77 K/uL (150-450); RED BLOOD CELL COUNT(AUTO) 2.81 MIL/uL (4.00-5.20); RED CELL DISTRIBUTION WIDTH 17.1 % (11.5-14.5)
[2020-09-28 07:14] LABS: CALCIUM, TOTAL 8.5 mg/dL (8.8-10.5); CREATININE 2.29 mg/dL (0.60-1.30); MAGNESIUM 1.6 mg/dL (1.80-2.40); POTASSIUM 3.6 mmol/L (3.5-5.1)
[2020-09-28 07:26] LABS: CALCIUM, TOTAL 8.2 mg/dL (8.8-10.5); CREATININE 2.36 mg/dL (0.60-1.30); PHOSPHORUS 3.6 mg/dL (2.5-4.9); POTASSIUM 3.6 mmol/L (3.5-5.1)
[2020-09-28 07:50] LABS: NEUTROPHILS % (AUTO) 88.7 % (40.0-70.0)
[2020-09-28 08:00] VITALS: BP 125/63
[2020-09-28] MEDS: CHOLECALCIFEROL (VIT D3) 5,000 [125 MCG] UNITS CAPSULE PO SCH (08:46)
[2020-09-28] MEDS: DOCUSATE SODIUM 100 MG CAPSULE PO SCH ×2 (08:46→20:41)
[2020-09-28] MEDS ORDERED: MAGNESIUM SULFATE 1 GM in DEXTROSE 5%-WATER 50 ML IV ONE (10:00)
[2020-09-28 12:00] VITALS: BP 137/61
[2020-09-28 12:48] LABS: ABG A-A DIFF O2 78.7 mmHg (10-20.0); ABG BASE EXCESS -0.5 mmol/L (-2.0-3.0); ABG CARBOXYHEMOGLOBIN 0.5 % (0.0-1.5); ABG HCO3 24.2 mmol/L (22.0-26.0); ABG METHEMOGLOBIN 0.3 % (0.0-1.5); ABG OXYGEN CONTENT 12.5 mL/dL (15.0-23.0); ABG OXYGEN SATURATION 98.5 % (95.0-98.0); ABG OXYHEMOGLOBIN 97.7 % (94.0-100.0); ABG PCO2 37 mmHg (35-45); ABG PH 7.428 (7.35-7.450); ABG TOTAL HEMOGLOBIN 8.9 G/dL (12.0-18.0); PO2, ARTERIAL BG 128.6 mmHg (79.0-87.0); SOURCE, BLOOD GAS ARTERIAL; TEMPERATURE, FAHRENHEIT, BG 97.4 FAHREN (96.0-98.6)
[2020-09-28 12:49] LABS: CPAP, BG 5 cm H2O; O2 DEVICE,BLOOD GAS VENTILATOR (ROOM AIR); PRESSURE SUPPORT, BG 10 cm H2O; SITE, BLOOD GAS ARTERIAL LINE; SPONTANEOUS VT, BG 290 ml; VENT MODE, BG Press. Support Vent. (ROOM AIR)
[2020-09-28 13:09] LABS: HEMATOCRIT 23.8 % (36-46); HEMOGLOBIN 7.9 g/dL (12.0-16.0)
[2020-09-28 16:00] VITALS: BP 147/68
[2020-09-28 20:00] VITALS: BP 150/68
[2020-09-28 21:04] LABS: HEMOGLOBIN 7.9 g/dL (12.0-16.0)
[2020-09-29] VITALS: BP 136/60
[2020-09-29] MEDS: PROPOFOL 1000 MG/ISO-OSM 100 ML IV PRN ×3 (01:55→20:46)
[2020-09-29] MEDS: PANTOPRAZOLE SODIUM 80 MG in SODIUM CHLORIDE 0.9% 100 ML IV SCH ×3 (02:46→23:56)
[2020-09-29 04:00] VITALS: BP 141/64
[2020-09-29] MEDS ORDERED: SODIUM CHLORIDE 0.9% 250 ML IV ONE ×3 (05:09→20:42)
[2020-09-29] MEDS ORDERED: SODIUM CHLORIDE 0.9% 500 ML IV ONE ×3 (05:09→20:42)
[2020-09-29] MEDS: PIPERACILLIN SODIUM/TAZOBACTAM 2.25 GM in DEXTROSE 5%-WATER 50 ML IV SCH ×4 (05:16→23:56)
[2020-09-29] MEDS: ALBUMIN HUMAN 25%-25GM/100ML 100 ML IV SCH ×3 (05:16→20:59)
[2020-09-29 05:23] LABS: BASOPHILS % (AUTO) 0.4 % (0.0-2.0); HEMATOCRIT 23.3 % (36-46); HEMOGLOBIN 7.6 g/dL (12.0-16.0); LYMPHOCYTES # (AUTO) 0.6 K/uL (1.0-4.8); LYMPHOCYTES % (AUTO) 9.7 % (22.0-44.0); MEAN CORPUSCULAR HEMOGLOBIN 28.4 pg (26.0-34.0); MEAN CORPUSCULAR HGB CONC 32.8 G/dL (31.0-37.0); MEAN CORPUSCULAR VOLUME 87 fL (80-100); MONOCYTES # (AUTO) 0.3 K/uL (0.1-1.0); NEUTROPHILS # (AUTO) 4.7 K/uL (1.8-7.7); NEUTROPHILS % (AUTO) 81.9 % (40.0-70.0); PLATELET COUNT (AUTO) 93 K/uL (150-450); RED BLOOD CELL COUNT(AUTO) 2.69 MIL/uL (4.00-5.20); RED CELL DISTRIBUTION WIDTH 17.2 % (11.5-14.5)
[2020-09-29 05:44] LABS: ALBUMIN 3.3 g/dL (3.4-5.0); BILIRUBIN,TOTAL 1.4 mg/dL (0.1-1.0); CALCIUM, TOTAL 8.3 mg/dL (8.8-10.5); CREATININE 2.77 mg/dL (0.60-1.30); MAGNESIUM 2.4 mg/dL (1.80-2.40); POTASSIUM 3.1 mmol/L (3.5-5.1); TOTAL PROTEIN, SERUM 5.4 g/dL (6.4-8.2)
[2020-09-29 08:00] VITALS: BP 143/61
[2020-09-29] MEDS: DOCUSATE SODIUM 100 MG CAPSULE PO SCH ×2 (09:00→20:45)
[2020-09-29] MEDS: CHOLECALCIFEROL (VIT D3) 5,000 [125 MCG] UNITS CAPSULE PO SCH (09:44)
[2020-09-29] MEDS: POTASSIUM CHL 10 MEQ/WATER 50 ML IV SCH ×3 (09:57→12:25)
[2020-09-29] MEDS: POTASSIUM CHLORIDE 20 MEQ in DEXTROSE 5%-WATER 1,000 ML IV SCH (09:57)
[2020-09-29 10:45] LABS: BASOPHILS % (AUTO) 0.4 % (0.0-2.0); EOSINOPHILS % (AUTO) 2.4 % (1.0-6.0); HEMATOCRIT 23.3 % (36-46); HEMOGLOBIN 7.7 g/dL (12.0-16.0); LYMPHOCYTES # (AUTO) 0.5 K/uL (1.0-4.8); LYMPHOCYTES % (AUTO) 8.2 % (22.0-44.0); MEAN CORPUSCULAR HEMOGLOBIN 28.4 pg (26.0-34.0); MEAN CORPUSCULAR HGB CONC 32.9 G/dL (31.0-37.0); MEAN CORPUSCULAR VOLUME 86 fL (80-100); MONOCYTES # (AUTO) 0.3 K/uL (0.1-1.0); MONOCYTES % (AUTO) 5.4 % (2.0-9.0); NEUTROPHILS # (AUTO) 4.8 K/uL (1.8-7.7); NEUTROPHILS % (AUTO) 83.6 % (40.0-70.0); PLATELET COUNT (AUTO) 92 K/uL (150-450); RED CELL DISTRIBUTION WIDTH 17.2 % (11.5-14.5)
[2020-09-29 11:00] LABS: ALBUMIN 3.3 g/dL (3.4-5.0); BILIRUBIN,DIRECT 0.8 mg/dL (0.00-0.20); BILIRUBIN,TOTAL 1.2 mg/dL (0.1-1.0); TOTAL PROTEIN, SERUM 5.5 g/dL (6.4-8.2)
[2020-09-29 12:00] VITALS: BP 133/57
[2020-09-29] MEDS ORDERED: EPINEPHrine 1:10,000 [1 MG/10 ML] SYRINGE ONE (12:00)
[2020-09-29 16:00] VITALS: BP 150/50
[2020-09-29 17:35] LABS: CALCIUM, TOTAL 7.8 mg/dL (8.8-10.5); CREATININE 2.52 mg/dL (0.60-1.30); POTASSIUM 3.7 mmol/L (3.5-5.1)
[2020-09-29 20:00] VITALS: BP 142/68
[2020-09-29 21:23] LABS: BASOPHILS % (AUTO) 0.3 % (0.0-2.0); EOSINOPHILS % (AUTO) 3.6 % (1.0-6.0); HEMATOCRIT 24.8 % (36-46); HEMOGLOBIN 8.1 g/dL (12.0-16.0); LYMPHOCYTES # (AUTO) 0.7 K/uL (1.0-4.8); LYMPHOCYTES % (AUTO) 12.1 % (22.0-44.0); MEAN CORPUSCULAR HEMOGLOBIN 28.2 pg (26.0-34.0); MEAN CORPUSCULAR HGB CONC 32.6 G/dL (31.0-37.0); MEAN CORPUSCULAR VOLUME 87 fL (80-100); MONOCYTES # (AUTO) 0.3 K/uL (0.1-1.0); MONOCYTES % (AUTO) 5.7 % (2.0-9.0); NEUTROPHILS # (AUTO) 4.5 K/uL (1.8-7.7); NEUTROPHILS % (AUTO) 78.3 % (40.0-70.0); PLATELET COUNT (AUTO) 109 K/uL (150-450); RED BLOOD CELL COUNT(AUTO) 2.86 MIL/uL (4.00-5.20); RED CELL DISTRIBUTION WIDTH 17.7 % (11.5-14.5)
[2020-09-30] VITALS: BP 147/70
[2020-09-30] MEDS: PROPOFOL 1000 MG/ISO-OSM 100 ML IV PRN (03:23)
[2020-09-30 04:00] VITALS: BP 139/63
[2020-09-30 05:22] LABS: BASOPHILS % (AUTO) 0.4 % (0.0-2.0); HEMATOCRIT 23.7 % (36-46); HEMOGLOBIN 7.8 g/dL (12.0-16.0); LYMPHOCYTES # (AUTO) 0.7 K/uL (1.0-4.8); LYMPHOCYTES % (AUTO) 12.8 % (22.0-44.0); MEAN CORPUSCULAR HEMOGLOBIN 28.7 pg (26.0-34.0); MEAN CORPUSCULAR VOLUME 87 fL (80-100); MONOCYTES # (AUTO) 0.3 K/uL (0.1-1.0); MONOCYTES % (AUTO) 6.1 % (2.0-9.0); NEUTROPHILS # (AUTO) 4.3 K/uL (1.8-7.7); NEUTROPHILS % (AUTO) 76.7 % (40.0-70.0); PLATELET COUNT (AUTO) 101 K/uL (150-450); RED BLOOD CELL COUNT(AUTO) 2.73 MIL/uL (4.00-5.20); RED CELL DISTRIBUTION WIDTH 17.6 % (11.5-14.5)
[2020-09-30] MEDS: POTASSIUM CHLORIDE 20 MEQ in DEXTROSE 5%-WATER 1,000 ML IV SCH (05:22)
[2020-09-30] MEDS: PIPERACILLIN SODIUM/TAZOBACTAM 2.25 GM in DEXTROSE 5%-WATER 50 ML IV SCH ×4 (05:22→23:29)
[2020-09-30] MEDS: ALBUMIN HUMAN 25%-25GM/100ML 100 ML IV SCH ×3 (05:22→22:33)
[2020-09-30 05:36] LABS: ALBUMIN 3.4 g/dL (3.4-5.0); BILIRUBIN,TOTAL 1.2 mg/dL (0.1-1.0); CALCIUM, TOTAL 8.3 mg/dL (8.8-10.5); CREATININE 2.67 mg/dL (0.60-1.30); POTASSIUM 3.7 mmol/L (3.5-5.1); TOTAL PROTEIN, SERUM 5.7 g/dL (6.4-8.2)
[2020-09-30 08:00] VITALS: BP 147/61
[2020-09-30] MEDS: DOCUSATE SODIUM 100 MG CAPSULE PO SCH ×2 (08:48→21:00)
[2020-09-30] MEDS: CHOLECALCIFEROL (VIT D3) 5,000 [125 MCG] UNITS CAPSULE PO SCH (08:48)
[2020-09-30] MEDS: PANTOPRAZOLE SODIUM 80 MG in SODIUM CHLORIDE 0.9% 100 ML IV SCH ×2 (08:56→18:03)
[2020-09-30] MEDS ORDERED: DEXMEDETOMIDINE HCL 400 MCG in SODIUM CHLORIDE 0.9% 96 ML IV PRN (09:45)
[2020-09-30 12:00] VITALS: BP 142/63
[2020-09-30 13:40] LABS: ABG HCO3 23.4 mmol/L (22.0-26.0); ABG PCO2 37 mmHg (35-45); PO2, ARTERIAL BG 144.4 mmHg (79.0-87.0); SITE, BLOOD GAS ARTERIAL LINE; SOURCE, BLOOD GAS ARTERIAL; TEMPERATURE, FAHRENHEIT, BG 97.1 FAHREN (96.0-98.6)
[2020-09-30 13:41] LABS: ABG BASE EXCESS -1.5 mmol/L (-2.0-3.0); ABG CARBOXYHEMOGLOBIN 0.1 % (0.0-1.5); ABG METHEMOGLOBIN 0.3 % (0.0-1.5); ABG OXYGEN CONTENT 13.1 mL/dL (15.0-23.0); ABG OXYGEN SATURATION 98.8 % (95.0-98.0); ABG OXYHEMOGLOBIN 98.4 % (94.0-100.0); ABG TOTAL HEMOGLOBIN 9.2 G/dL (12.0-18.0); O2 DEVICE,BLOOD GAS VENTILATOR (ROOM AIR); VENT MODE, BG Press. Support Vent. (ROOM AIR)
[2020-09-30 13:42] LABS: PEEP,BG 5 cm H2O; PRESSURE SUPPORT, BG 8 cm H2O; SPONTANEOUS VT, BG 321 ml
[2020-09-30 16:00] VITALS: BP 145/68
[2020-09-30] MEDS: HydrALAZINE HCL 20 MG/ML VIAL IVP PRN (19:51)
[2020-09-30 20:00] VITALS: BP 158/64
[2020-09-30] MEDS ORDERED: SODIUM CHLORIDE 0.9% 500 ML IV ONE (22:29)
[2020-09-30] MEDS ORDERED: SODIUM CHLORIDE 0.9% 250 ML IV ONE (22:29)
[2020-10-01] VITALS (7 sets, daily range): BP systolic 116–154; BP diastolic 59–90
[2020-10-01] MEDS: POTASSIUM CHLORIDE 20 MEQ in DEXTROSE 5%-WATER 1,000 ML IV SCH (01:33)
[2020-10-01] MEDS: PANTOPRAZOLE SODIUM 80 MG in SODIUM CHLORIDE 0.9% 100 ML IV SCH ×3 (02:16→20:28)
[2020-10-01] MEDS: PIPERACILLIN SODIUM/TAZOBACTAM 2.25 GM in DEXTROSE 5%-WATER 50 ML IV SCH ×3 (04:57→17:00)
[2020-10-01] MEDS: HydrALAZINE HCL 20 MG/ML VIAL IVP PRN (04:57)
[2020-10-01] MEDS: ALBUMIN HUMAN 25%-25GM/100ML 100 ML IV SCH ×3 (04:58→23:27)
[2020-10-01 06:33] LABS: CALCIUM, TOTAL 8.5 mg/dL (8.8-10.5); CREATININE 2.45 mg/dL (0.60-1.30); POTASSIUM 3.7 mmol/L (3.5-5.1)
[2020-10-01] MEDS: CHOLECALCIFEROL (VIT D3) 5,000 [125 MCG] UNITS CAPSULE PO SCH (09:00)
[2020-10-01] MEDS: DOCUSATE SODIUM 100 MG CAPSULE PO SCH ×2 (09:00→21:00)
[2020-10-01] MEDS: LORazepam 2 MG/ML VIAL IVP PRN (21:06)
[2020-10-02] VITALS (8 sets, daily range): BP systolic 122–150; BP diastolic 70–94
[2020-10-02] MEDS: PIPERACILLIN SODIUM/TAZOBACTAM 2.25 GM in DEXTROSE 5%-WATER 50 ML IV SCH ×4 (00:21→18:26)
[2020-10-02] MEDS: POTASSIUM CHLORIDE 20 MEQ in DEXTROSE 5%-WATER 1,000 ML IV SCH (05:06)
[2020-10-02] MEDS: ALBUMIN HUMAN 25%-25GM/100ML 100 ML IV SCH ×3 (05:06→21:56)
[2020-10-02] MEDS: LORazepam 2 MG/ML VIAL IVP PRN (05:21)
[2020-10-02] MEDS: PANTOPRAZOLE SODIUM 80 MG in SODIUM CHLORIDE 0.9% 100 ML IV SCH ×2 (05:49→18:26)
[2020-10-02 07:20] LABS: BASOPHILS % (AUTO) 0.4 % (0.0-2.0); EOSINOPHILS % (AUTO) 2.5 % (1.0-6.0); HEMATOCRIT 24.4 % (36-46); LYMPHOCYTES # (AUTO) 0.8 K/uL (1.0-4.8); LYMPHOCYTES % (AUTO) 15.3 % (22.0-44.0); MEAN CORPUSCULAR HEMOGLOBIN 29.1 pg (26.0-34.0); MEAN CORPUSCULAR HGB CONC 32.9 G/dL (31.0-37.0); MEAN CORPUSCULAR VOLUME 88 fL (80-100); MONOCYTES # (AUTO) 0.4 K/uL (0.1-1.0); MONOCYTES % (AUTO) 6.7 % (2.0-9.0); NEUTROPHILS # (AUTO) 4.2 K/uL (1.8-7.7); NEUTROPHILS % (AUTO) 75.1 % (40.0-70.0); PLATELET COUNT (AUTO) 133 K/uL (150-450); RED BLOOD CELL COUNT(AUTO) 2.77 MIL/uL (4.00-5.20); RED CELL DISTRIBUTION WIDTH 17.6 % (11.5-14.5)
[2020-10-02 07:35] LABS: CALCIUM, TOTAL 9.2 mg/dL (8.8-10.5); CREATININE 2.4 mg/dL (0.60-1.30); MAGNESIUM 1.9 mg/dL (1.80-2.40); PHOSPHORUS 2.9 mg/dL (2.5-4.9); POTASSIUM 3.9 mmol/L (3.5-5.1)
[2020-10-02] MEDS: DOCUSATE SODIUM 100 MG CAPSULE PO SCH ×2 (09:00→20:00)
[2020-10-02] MEDS: CHOLECALCIFEROL (VIT D3) 5,000 [125 MCG] UNITS CAPSULE PO SCH (09:00)
[2020-10-03] MEDS: PIPERACILLIN SODIUM/TAZOBACTAM 2.25 GM in DEXTROSE 5%-WATER 50 ML IV SCH ×5 (00:05→23:18)
[2020-10-03 04:25] VITALS: BP 133/85
[2020-10-03] MEDS: PANTOPRAZOLE SODIUM 80 MG in SODIUM CHLORIDE 0.9% 100 ML IV SCH ×2 (04:34→14:19)
[2020-10-03] MEDS: ALBUMIN HUMAN 25%-25GM/100ML 100 ML IV SCH ×3 (05:16→21:00)
[2020-10-03 08:00] VITALS: BP 135/78
[2020-10-03 08:20] LABS: CALCIUM, TOTAL 8.7 mg/dL (8.8-10.5); CREATININE 2.6 mg/dL (0.60-1.30); MAGNESIUM 1.7 mg/dL (1.80-2.40); PHOSPHORUS 3.5 mg/dL (2.5-4.9); POTASSIUM 3.8 mmol/L (3.5-5.1)
[2020-10-03] MEDS: CHOLECALCIFEROL (VIT D3) 5,000 [125 MCG] UNITS CAPSULE PO SCH (09:00)
[2020-10-03] MEDS: DOCUSATE SODIUM 100 MG CAPSULE PO SCH ×2 (09:00→20:50)
[2020-10-03 11:53] VITALS: BP 118/70
[2020-10-03] MEDS ORDERED: *CLINICAL-TOTAL PARENTERAL NUTRITION DOSING CLINICAL ONE (12:45)
[2020-10-03] MEDS ORDERED: INSULIN REGULAR, HUMAN 100 UNITS/ML SQ PRN (13:30)
[2020-10-03] MEDS ORDERED: DEXTROSE 50%-WATER 25 GM/50 ML SYRINGE IVP PRN (13:30)
[2020-10-03 14:04] LABS: BASOPHILS % (AUTO) 0.3 % (0.0-2.0); EOSINOPHILS % (AUTO) 3.5 % (1.0-6.0); HEMATOCRIT 23.3 % (36-46); HEMOGLOBIN 7.7 g/dL (12.0-16.0); LYMPHOCYTES % (AUTO) 18.1 % (22.0-44.0); MEAN CORPUSCULAR HEMOGLOBIN 28.6 pg (26.0-34.0); MEAN CORPUSCULAR HGB CONC 33.1 G/dL (31.0-37.0); MEAN CORPUSCULAR VOLUME 86 fL (80-100); MONOCYTES # (AUTO) 0.3 K/uL (0.1-1.0); NEUTROPHILS % (AUTO) 72.1 % (40.0-70.0); PLATELET COUNT (AUTO) 165 K/uL (150-450); RED BLOOD CELL COUNT(AUTO) 2.69 MIL/uL (4.00-5.20); RED CELL DISTRIBUTION WIDTH 17.6 % (11.5-14.5)
[2020-10-03] MEDS ORDERED: SODIUM CHLORIDE 0.9% 250 ML IV ONE (15:49)
[2020-10-03 16:17] VITALS: BP 118/72
[2020-10-03 19:21] VITALS: BP 127/75
[2020-10-03] MEDS ORDERED: CALCIUM GLUCONATE IV SCH ×8 (22:00)
[2020-10-03] MEDS ORDERED: [UNRECOGNIZED DRUG - OTHER] IV SCH ×8 (22:00)
[2020-10-03] MEDS ORDERED: TPN IV SCH ×8 (22:00)
[2020-10-03] MEDS ORDERED: POTASSIUM ACETATE IV SCH ×8 (22:00)
[2020-10-03] MEDS: POTASSIUM CHLORIDE 20 MEQ in DEXTROSE 5%-WATER 1,000 ML IV SCH (22:32)
[2020-10-03] MEDS: LORazepam 2 MG/ML VIAL IVP PRN (23:16)
[2020-10-03 23:43] VITALS: BP 141/93
[2020-10-04] MEDS: PANTOPRAZOLE SODIUM 80 MG in SODIUM CHLORIDE 0.9% 100 ML IV SCH ×3 (00:35→21:21)
[2020-10-04 04:47] VITALS: BP 141/91
[2020-10-04] MEDS: ALBUMIN HUMAN 25%-25GM/100ML 100 ML IV SCH ×3 (06:18→21:34)
[2020-10-04] MEDS: PIPERACILLIN SODIUM/TAZOBACTAM 2.25 GM in DEXTROSE 5%-WATER 50 ML IV SCH ×4 (06:19→23:35)
[2020-10-04 07:43] LABS: BASOPHILS % (AUTO) 0.2 % (0.0-2.0); EOSINOPHILS % (AUTO) 3.3 % (1.0-6.0); HEMATOCRIT 28.1 % (36-46); HEMOGLOBIN 9.1 g/dL (12.0-16.0); LYMPHOCYTES # (AUTO) 1.3 K/uL (1.0-4.8); LYMPHOCYTES % (AUTO) 23.1 % (22.0-44.0); MEAN CORPUSCULAR HEMOGLOBIN 28.4 pg (26.0-34.0); MEAN CORPUSCULAR HGB CONC 32.4 G/dL (31.0-37.0); MEAN CORPUSCULAR VOLUME 88 fL (80-100); MONOCYTES # (AUTO) 0.3 K/uL (0.1-1.0); MONOCYTES % (AUTO) 4.9 % (2.0-9.0); NEUTROPHILS # (AUTO) 3.8 K/uL (1.8-7.7); NEUTROPHILS % (AUTO) 68.5 % (40.0-70.0); PLATELET COUNT (AUTO) 209 K/uL (150-450)
[2020-10-04 07:58] VITALS: BP 125/81
[2020-10-04 08:04] LABS: CALCIUM, TOTAL 9.3 mg/dL (8.8-10.5); CREATININE 2.66 mg/dL (0.60-1.30); MAGNESIUM 2.1 mg/dL (1.80-2.40); PHOSPHORUS 3.3 mg/dL (2.5-4.9); POTASSIUM 3.6 mmol/L (3.5-5.1)
[2020-10-04] MEDS: DOCUSATE SODIUM 100 MG CAPSULE PO SCH ×2 (09:00→21:00)
[2020-10-04] MEDS: CHOLECALCIFEROL (VIT D3) 5,000 [125 MCG] UNITS CAPSULE PO SCH (09:00)
[2020-10-04 11:18] VITALS: BP 140/90
[2020-10-04] MEDS ORDERED: SODIUM CHLORIDE 0.9% 250 ML IV ONE ×2 (14:35→23:33)
[2020-10-04 16:20] VITALS: BP 141/93
[2020-10-04 19:51] VITALS: BP 144/94
[2020-10-04] MEDS: POTASSIUM CHLORIDE 20 MEQ in DEXTROSE 5%-WATER 1,000 ML IV SCH (23:36)
[2020-10-04 23:46] VITALS: BP 145/90
[2020-10-05 04:59] VITALS: BP 140/90
[2020-10-05] MEDS: ALBUMIN HUMAN 25%-25GM/100ML 100 ML IV SCH ×3 (05:19→21:47)
[2020-10-05] MEDS: PIPERACILLIN SODIUM/TAZOBACTAM 2.25 GM in DEXTROSE 5%-WATER 50 ML IV SCH ×4 (05:19→23:03)
[2020-10-05 06:17] LABS: BASOPHILS % (AUTO) 0.4 % (0.0-2.0); EOSINOPHILS % (AUTO) 0.5 % (1.0-6.0); HEMATOCRIT 26.7 % (36-46); HEMOGLOBIN 8.8 g/dL (12.0-16.0); LYMPHOCYTES % (AUTO) 17.1 % (22.0-44.0); MEAN CORPUSCULAR HEMOGLOBIN 28.8 pg (26.0-34.0); MEAN CORPUSCULAR HGB CONC 33.1 G/dL (31.0-37.0); MEAN CORPUSCULAR VOLUME 87 fL (80-100); MONOCYTES # (AUTO) 0.3 K/uL (0.1-1.0); MONOCYTES % (AUTO) 5.3 % (2.0-9.0); NEUTROPHILS # (AUTO) 4.6 K/uL (1.8-7.7); NEUTROPHILS % (AUTO) 76.7 % (40.0-70.0); PLATELET COUNT (AUTO) 232 K/uL (150-450); RED BLOOD CELL COUNT(AUTO) 3.07 MIL/uL (4.00-5.20)
[2020-10-05] MEDS: PANTOPRAZOLE SODIUM 80 MG in SODIUM CHLORIDE 0.9% 100 ML IV SCH (06:17)
[2020-10-05] MEDS ORDERED: SODIUM CHLORIDE 0.9% 250 ML IV ONE (06:47)
[2020-10-05 06:57] LABS: CALCIUM, TOTAL 9.6 mg/dL (8.8-10.5); CREATININE 2.91 mg/dL (0.60-1.30); MAGNESIUM 1.9 mg/dL (1.80-2.40); POTASSIUM 4.1 mmol/L (3.5-5.1)
[2020-10-05 07:31] VITALS: BP 142/95
[2020-10-05] MEDS: CHOLECALCIFEROL (VIT D3) 5,000 [125 MCG] UNITS CAPSULE PO SCH (09:00)
[2020-10-05] MEDS: DOCUSATE SODIUM 100 MG CAPSULE PO SCH ×2 (09:00→21:00)
[2020-10-05 13:02] VITALS: BP 144/96
[2020-10-05] MEDS: SODIUM BICARBONATE 150 MEQ in DEXTROSE 5%-WATER 1,000 ML IV SCH (16:46)
[2020-10-05 19:45] VITALS: BP 133/89
[2020-10-05] MEDS: PANTOPRAZOLE SODIUM 40 MG/VIAL IVP SCH (21:03)
[2020-10-06 00:03] VITALS: BP 123/83
[2020-10-06 00:33] LABS: GLUCOMETER DEV NAME(LOC) 5S.1; GLUCOSE,POINT OF CARE 106 MG/DL (70-110)
[2020-10-06 00:33] LABS: GLUCOMETER DEV NAME(LOC) 5S.1; GLUCOSE,POINT OF CARE 139 MG/DL (70-110)
[2020-10-06 00:33] LABS: GLUCOMETER DEV NAME(LOC) 5S.1; GLUCOSE,POINT OF CARE 108 MG/DL (70-110)
[2020-10-06] MEDS ORDERED: SODIUM CHLORIDE 0.9% 250 ML IV ONE (01:19)
[2020-10-06 03:20] VITALS: BP 140/90
[2020-10-06] MEDS: ALBUMIN HUMAN 25%-25GM/100ML 100 ML IV SCH ×3 (04:28→21:59)
[2020-10-06] MEDS: PIPERACILLIN SODIUM/TAZOBACTAM 2.25 GM in DEXTROSE 5%-WATER 50 ML IV SCH ×3 (05:41→20:02)
[2020-10-06 06:36] LABS: BASOPHILS % (AUTO) 0.3 % (0.0-2.0); EOSINOPHILS % (AUTO) 2.1 % (1.0-6.0); HEMATOCRIT 25.6 % (36-46); HEMOGLOBIN 8.4 g/dL (12.0-16.0); LYMPHOCYTES # (AUTO) 1.2 K/uL (1.0-4.8); MEAN CORPUSCULAR HEMOGLOBIN 29.1 pg (26.0-34.0); MEAN CORPUSCULAR HGB CONC 32.8 G/dL (31.0-37.0); MEAN CORPUSCULAR VOLUME 89 fL (80-100); MONOCYTES # (AUTO) 0.3 K/uL (0.1-1.0); MONOCYTES % (AUTO) 5.2 % (2.0-9.0); NEUTROPHILS % (AUTO) 74.4 % (40.0-70.0); PLATELET COUNT (AUTO) 234 K/uL (150-450); RED BLOOD CELL COUNT(AUTO) 2.89 MIL/uL (4.00-5.20); RED CELL DISTRIBUTION WIDTH 18.3 % (11.5-14.5)
[2020-10-06 06:52] LABS: CALCIUM, TOTAL 9.4 mg/dL (8.8-10.5); CREATININE 2.92 mg/dL (0.60-1.30); PHOSPHORUS 3.3 mg/dL (2.5-4.9); POTASSIUM 3.4 mmol/L (3.5-5.1)
[2020-10-06 07:02] LABS: MAGNESIUM 1.8 mg/dL (1.80-2.40)
[2020-10-06 07:31] VITALS: BP 135/90
[2020-10-06 07:41] LABS: GLUCOMETER DEV NAME(LOC) 5S.1; GLUCOSE,POINT OF CARE 121 MG/DL (70-110)
[2020-10-06] MEDS: PANTOPRAZOLE SODIUM 40 MG/VIAL IVP SCH ×2 (08:24→21:54)
[2020-10-06] MEDS: SODIUM BICARBONATE 150 MEQ in DEXTROSE 5%-WATER 1,000 ML IV SCH (08:24)
[2020-10-06] MEDS: CHOLECALCIFEROL (VIT D3) 5,000 [125 MCG] UNITS CAPSULE PO SCH (08:30)
[2020-10-06] MEDS: DOCUSATE SODIUM 100 MG CAPSULE PO SCH ×2 (08:30→21:00)
[2020-10-06] MEDS ORDERED: POTASSIUM CHL 10 MEQ/WATER 50 ML IV ONE (09:00)
[2020-10-06 10:59] VITALS: BP 139/93
[2020-10-06 15:40] VITALS: BP 144/88
[2020-10-06] MEDS: LORazepam 2 MG/ML VIAL IVP PRN (15:58)
[2020-10-06 19:33] VITALS: BP 109/66
[2020-10-07 00:02] VITALS: BP 141/92
[2020-10-07] MEDS: PIPERACILLIN SODIUM/TAZOBACTAM 2.25 GM in DEXTROSE 5%-WATER 50 ML IV SCH ×3 (00:35→11:54)
[2020-10-07] MEDS: ALBUMIN HUMAN 25%-25GM/100ML 100 ML IV SCH (05:37)
[2020-10-07 08:54] VITALS: BP 141/91
[2020-10-07] MEDS: DOCUSATE SODIUM 100 MG CAPSULE PO SCH ×2 (09:00→09:38)
[2020-10-07] MEDS: CHOLECALCIFEROL (VIT D3) 5,000 [125 MCG] UNITS CAPSULE PO SCH ×2 (09:00→09:39)
[2020-10-07] MEDS: PANTOPRAZOLE SODIUM 40 MG/VIAL IVP SCH (09:19)
[2020-10-07 11:23] VITALS: BP 134/78
[2020-10-07] MEDS ORDERED: CHOL500013 PO (12:15)
[2020-10-07] MEDS ORDERED: DOCU-270 PO (12:25)
[2020-10-07] MEDS ORDERED: PANT-31 PO (12:25)
[2020-10-07] MEDS ORDERED: FERR-89 PO (12:25)
[2020-10-08 05:07] LABS: HEPATITIS C AB (EIA) <0.1 s/co ratio (0.0-0.9)
[2020-10-08 05:34] LABS: GLUCOMETER DEV NAME(LOC) 5S.2B; GLUCOSE,POINT OF CARE 138 MG/DL (70-110)
== END 2020-10-07 19:30 | disposition home health service (06) | DRG 45 ==
LOC: EMS 21:28 → 5S 23:44 → UNDOADMIN 23:44 → ICU 09-25 11:40 → 5S 10-01 17:46
PROVIDERS: ADMIT Internal Medicine; ATTEND Internal Medicine
PROC: 30233N1 Transfusion of Nonautologous Red Blood Cells into Peripheral Vein, Percutaneous Approach (ICD-10-PCS; 2020-09-19)
PROC: 0DB68ZX Excision of Stomach, Via Natural or Artificial Opening Endoscopic, Diagnostic (ICD-10-PCS; 2020-09-20)
PROC: C713YZZ Planar Nuclear Medicine Imaging of Blood using Other Radionuclide (ICD-10-PCS; 2020-09-23)
PROC: 0BH17EZ Insertion of Endotracheal Airway into Trachea, Via Natural or Artificial Opening (ICD-10-PCS; 2020-09-25)
PROC: 0W3P8ZZ Control Bleeding in Gastrointestinal Tract, Via Natural or Artificial Opening Endoscopic (ICD-10-PCS; 2020-09-25)
PROC: 04HY32Z Insertion of Monitoring Device into Lower Artery, Percutaneous Approach (ICD-10-PCS; 2020-09-25)
PROC: 4A133B1 Monitoring of Arterial Pressure, Peripheral, Percutaneous Approach (ICD-10-PCS; 2020-09-25)
PROC: 4A133J1 Monitoring of Arterial Pulse, Peripheral, Percutaneous Approach (ICD-10-PCS; 2020-09-25)
PROC: B44FZZZ Ultrasonography of Right Lower Extremity Arteries (ICD-10-PCS; 2020-09-25)
PROC: 02H633Z Insertion of Infusion Device into Right Atrium, Percutaneous Approach (ICD-10-PCS; 2020-09-25)
PROC: B548ZZA Ultrasonography of Superior Vena Cava, Guidance (ICD-10-PCS; 2020-09-25)
PROC: 5A1955Z Respiratory Ventilation, Greater than 96 Consecutive Hours (ICD-10-PCS; principal; 2020-09-25 16:00)
PROC: 0DJ08ZZ Inspection of Upper Intestinal Tract, Via Natural or Artificial Opening Endoscopic (ICD-10-PCS; 2020-09-29)
DX: I63.9 Cerebral infarction, unspecified (principal); J96.00 Acute respiratory failure, unspecified whether with hypoxia or hypercapnia; N17.0 Acute kidney failure with tubular necrosis; R57.8 Other shock; G93.41 Metabolic encephalopathy; K25.4 Chronic or unspecified gastric ulcer with hemorrhage; N18.4 Chronic kidney disease, stage 4 (severe); I95.89 Other hypotension; E87.0 Hyperosmolality and hypernatremia; D62 Acute posthemorrhagic anemia; E83.51 Hypocalcemia; E87.4 Mixed disorder of acid-base balance; Z20.822 Contact with and (suspected) exposure to COVID-19; E88.09 Other disorders of plasma-protein metabolism, not elsewhere classified; I50.9 Heart failure, unspecified; I13.0 Hypertensive heart and chronic kidney disease with heart failure and stage 1 through stage 4 chronic kidney disease, or unspecified chronic kidney disease; D50.9 Iron deficiency anemia, unspecified; R29.710 NIHSS score 10; R47.1 Dysarthria and anarthria; I25.10 Atherosclerotic heart disease of native coronary artery without angina pectoris; R13.10 Dysphagia, unspecified; I42.9 Cardiomyopathy, unspecified; E83.42 Hypomagnesemia; E87.6 Hypokalemia; I69.320 Aphasia following cerebral infarction; Q61.2 Polycystic kidney, adult type; Z79.899 Other long term (current) drug therapy; Z78.1 Physical restraint status
CPT/HCPCS: 36569; 36600; 51702; 70450; 70551; 71045; 76770; 78278; 80048; 80053; 80061; 80074; 81003; 82140; 82248; 82271; 82550; 82805; 82962; 83036; 83540; 83550; 83605; 83735; 84075; 84100; 84132; 84145; 84484; 85014; 85018; 85025; 85045; 85610; 85730; 86706; 86850; 86900; 86901; 86923; 87040; 87081; 87340; 88305; 88312; 88313; 92526; 92610; 93005; 93306; 93880; 94002; 94003; 97530; 99291; A9575; C9113; G0378; J0171; J0360; J0610; J1265; J1644; J2060; J2270; J2370; J2543; J2704; J2765; J3475; J3480; J3490; J7030; J7040; J7050; J7060; J7070; P9016; P9046; 36415-L1; 36415-TC; A9560; X7700

== ENCOUNTER 2022-10-01 18:11 | Inpatient (IN) | payer MEDICAID ==
[~2022-10-01] VITALS: Ht 162.6 cm; Wt 56.9 kg
[~2022-10-01 18:11] MED LIST changes: -CARV3.1231 PO; +CHOL500013 PO; +DOCU-385 PO; +FERR325T27 PO; -FURO-152 PO; +PANT-31 PO
[2022-10-01] MEDS ORDERED: FURO20TA4 PO (18:19)
[2022-10-01] MEDS ORDERED: CARV3 PO (18:19)
[2022-10-01] MEDS ORDERED: SACU1TAB PO (18:19)
[2022-10-01] MEDS ORDERED: FUROSEMIDE 40 MG/4 ML VIAL IVP ONE (19:00)
[2022-10-01 19:28] LABS: BASOPHILS % (AUTO) 1.2 % (0.0-2.0); EOSINOPHILS % (AUTO) 3.3 % (1.0-6.0); HEMATOCRIT 31.6 % (36-46); HEMOGLOBIN 10.3 g/dL (12.0-16.0); MEAN CORPUSCULAR HEMOGLOBIN 29.3 pg (26.0-34.0); MEAN CORPUSCULAR HGB CONC 32.8 G/dL (31.0-37.0); MEAN CORPUSCULAR VOLUME 90 fL (80-100); MONOCYTES # (AUTO) 0.3 K/uL (0.1-1.0); MONOCYTES % (AUTO) 6.1 % (2.0-9.0); NEUTROPHILS # (AUTO) 3.2 K/uL (1.8-7.7); NEUTROPHILS % (AUTO) 67.4 % (40.0-70.0); PLATELET COUNT (AUTO) 247 K/uL (150-450); RED BLOOD CELL COUNT(AUTO) 3.52 MIL/uL (4.00-5.20); RED CELL DISTRIBUTION WIDTH 14.3 % (11.5-14.5)
[2022-10-01 19:28] LABS: COVID AG,FIA SOURCE NASOPHARYNGEAL
[2022-10-01 19:40] LABS: ANION GAP 16 mmol/L (8-16); CALCIUM, TOTAL 8.8 mg/dL (8.8-10.5); CARBON DIOXIDE 17 mmol/L (22-29); CHLORIDE 108 mmol/L (98-107); CREATININE 3.06 mg/dL (0.60-1.30); GLOMERULAR FILTR. RATE CALC 15 mL/min (>60); GLUCOSE,RANDOM 120 mg/dL (70-110); POTASSIUM 4.9 mmol/L (3.5-5.1); SODIUM SERUM 141 mmol/L (136-145)
[2022-10-01 19:46] LABS: ALANINE AMINOTRANSFERASE 21 U/L (12-78); ALBUMIN 3.1 g/dL (3.4-5.0); ALKALINE PHOSPHATASE 101 U/L (46-116); ASPARTATE AMINOTRANSFERASE 21 U/L (15-37); BILIRUBIN,TOTAL 0.7 mg/dL (0.1-1.0); LIPASE 60 U/L (16-77); TOTAL PROTEIN, SERUM 6.8 g/dL (6.4-8.2)
[2022-10-01 19:47] LABS: LACTIC ACID 1.1 mmol/L (0.4-2.0)
[2022-10-01 19:51] LABS: B-TYPE NATRIURETIC PEPTIDE > 5000 pg/mL (0-100)
[2022-10-01] MEDS ORDERED: ASPIRIN 325 MG TABLET PO ONE (21:15)
[2022-10-01] MEDS ORDERED: ONDANSETRON HCL 4 MG/2 ML VIAL IVP PRN (21:30)
[2022-10-01] MEDS ORDERED: ACETAMINOPHEN 325 MG TABLET PO PRN (21:30)
[2022-10-01] MEDS ORDERED: OxyCODONE HCL/ACETAMINOPHEN 5-325 MG TABLET PO PRN (21:30)
[2022-10-01 21:34] LABS: APPEARANCE,URINE CLEAR (CLEAR); BILIRUBIN,URINE NEGATIVE (NEGATIVE); GLUCOSE, URINE (UA) NEGATIVE (NEGATIVE); KETONES,URINE NEGATIVE (NEGATIVE); LEUKOCYTE ESTERASE ,URINE NEGATIVE (NEGATIVE); NITRATE,URINE NEGATIVE (NEGATIVE); OCCULT BLOOD,URINE NEGATIVE (NEGATIVE); PH,URINE 5.5 (5.0-8.0); PROTEIN,URINE NEGATIVE (NEGATIVE); SPECIFIC GRAVITIY, URINE 1.009 (1.003-1.030); UROBILINOGEN,URINE <=1.0 mg/dL (<=1.0)
[2022-10-01] MEDS: METOPROLOL SUCCINATE 25 MG ER TABLET PO SCH (21:36)
[2022-10-01 21:45] LABS: BACTERIA,URINE None Seen /HPF (None Seen); RBC,URINE None Seen /HPF (0-2); WBC,URINE 0-2 /HPF (0-5)
[2022-10-01 22:08] VITALS: BP 119/64; PULSE 111; RESP 18; TEMP 98.4
[2022-10-01] MEDS: HEPARIN SODIUM,PORCINE 5,000 UNITS/ML VIAL SQ SCH (23:42)
[2022-10-02 04:46] VITALS: BP 106/69; PULSE 105; RESP 18; TEMP 97.7
[2022-10-02 07:40] VITALS: BP 111/73; PULSE 105; RESP 19; TEMP 97.9
[2022-10-02] MEDS ORDERED: FUROSEMIDE 40 MG/4 ML VIAL IVP SCH (09:00)
[2022-10-02] MEDS: HEPARIN SODIUM,PORCINE 5,000 UNITS/ML VIAL SQ SCH ×3 (09:05→23:40)
[2022-10-02] MEDS: DOCUSATE SODIUM 100 MG CAPSULE PO SCH ×2 (09:06→21:03)
[2022-10-02] MEDS: ASPIRIN 81 MG CHEWABLE TABLET PO SCH (09:06)
[2022-10-02] MEDS: FAMOTIDINE 20 MG TABLET PO SCH (09:06)
[2022-10-02 11:41] VITALS: BP 107/79; PULSE 99; RESP 18; TEMP 98
[2022-10-02 15:59] VITALS: BP 108/64; PULSE 81; RESP 18; TEMP 98
[2022-10-02 20:20] VITALS: BP 109/72; PULSE 107; RESP 19; TEMP 98.6
[2022-10-02] MEDS: METOPROLOL SUCCINATE 25 MG ER TABLET PO SCH (21:03)
[2022-10-02] MEDS: CITRIC ACID/SODIUM CITRATE 30 ML SOLUTION UDCUP PO SCH (21:03)
[2022-10-02] MEDS: FUROSEMIDE 40 MG/4 ML VIAL IVP SCH (21:04)
[2022-10-03 00:13] VITALS: BP 117/85; PULSE 110; RESP 16; TEMP 98.5
[2022-10-03 04:47] VITALS: BP 116/86; PULSE 114; RESP 16; TEMP 98
[2022-10-03 08:01] VITALS: BP 109/83; PULSE 110; RESP 18; TEMP 97.5
[2022-10-03 08:03] LABS: BASOPHILS % (AUTO) 0.7 % (0.0-2.0); EOSINOPHILS % (AUTO) 6.5 % (1.0-6.0); HEMATOCRIT 33.9 % (36-46); HEMOGLOBIN 11.2 g/dL (12.0-16.0); LYMPHOCYTES # (AUTO) 1.2 K/uL (1.0-4.8); LYMPHOCYTES % (AUTO) 23.9 % (22.0-44.0); MEAN CORPUSCULAR HEMOGLOBIN 29.6 pg (26.0-34.0); MEAN CORPUSCULAR HGB CONC 33.1 G/dL (31.0-37.0); MEAN CORPUSCULAR VOLUME 89 fL (80-100); MONOCYTES # (AUTO) 0.3 K/uL (0.1-1.0); MONOCYTES % (AUTO) 5.3 % (2.0-9.0); NEUTROPHILS # (AUTO) 3.1 K/uL (1.8-7.7); NEUTROPHILS % (AUTO) 63.6 % (40.0-70.0); PLATELET COUNT (AUTO) 275 K/uL (150-450); RED BLOOD CELL COUNT(AUTO) 3.79 MIL/uL (4.00-5.20); RED CELL DISTRIBUTION WIDTH 14.1 % (11.5-14.5)
[2022-10-03 08:11] LABS: CALCIUM, TOTAL 8.5 mg/dL (8.8-10.5); CREATININE 3.38 mg/dL (0.60-1.30); MAGNESIUM 2.1 mg/dL (1.80-2.40); PHOSPHORUS 4.6 mg/dL (2.5-4.9); POTASSIUM 3.9 mmol/L (3.5-5.1)
[2022-10-03] MEDS: FAMOTIDINE 20 MG TABLET PO SCH (08:32)
[2022-10-03] MEDS: ASPIRIN 81 MG CHEWABLE TABLET PO SCH (08:32)
[2022-10-03] MEDS: HEPARIN SODIUM,PORCINE 5,000 UNITS/ML VIAL SQ SCH ×2 (08:32→17:16)
[2022-10-03] MEDS: DOCUSATE SODIUM 100 MG CAPSULE PO SCH ×2 (08:32→20:40)
[2022-10-03] MEDS: FUROSEMIDE 40 MG/4 ML VIAL IVP SCH (08:33)
[2022-10-03] MEDS: CITRIC ACID/SODIUM CITRATE 30 ML SOLUTION UDCUP PO SCH ×2 (08:33→20:40)
[2022-10-03] MEDS: FUROSEMIDE 40 MG TABLET PO SCH ×2 (09:00→20:40)
[2022-10-03] MEDS: SACUBITRIL/VALSARTAN 24-26 MG TABLET PO SCH ×2 (09:59→20:40)
[2022-10-03 11:40] VITALS: BP 99/74; PULSE 102; RESP 19; TEMP 97.7
[2022-10-03 12:41] LABS: GLUCOMETER DEV NAME(LOC) 5S.2C
[2022-10-03 15:36] VITALS: BP 115/59; PULSE 83; RESP 18; TEMP 98
[2022-10-03 19:49] VITALS: BP 102/75; PULSE 72; RESP 18; TEMP 98
[2022-10-03] MEDS: METOPROLOL SUCCINATE 25 MG ER TABLET PO SCH (20:41)
[2022-10-04] MEDS: HEPARIN SODIUM,PORCINE 5,000 UNITS/ML VIAL SQ SCH ×3 (01:14→16:59)
[2022-10-04 01:26] VITALS: BP 105/68; PULSE 75; RESP 17; TEMP 98
[2022-10-04 05:13] VITALS: BP 107/76; PULSE 74; RESP 18; TEMP 97.9
[2022-10-04 08:00] VITALS: BP 105/74; PULSE 90; RESP 20; TEMP 97.9
[2022-10-04] MEDS: DOCUSATE SODIUM 100 MG CAPSULE PO SCH (09:40)
[2022-10-04] MEDS: SACUBITRIL/VALSARTAN 24-26 MG TABLET PO SCH (09:40)
[2022-10-04] MEDS: ASPIRIN 81 MG CHEWABLE TABLET PO SCH (09:40)
[2022-10-04] MEDS: CITRIC ACID/SODIUM CITRATE 30 ML SOLUTION UDCUP PO SCH (09:40)
[2022-10-04] MEDS: FAMOTIDINE 20 MG TABLET PO SCH (09:40)
[2022-10-04] MEDS: FUROSEMIDE 40 MG TABLET PO SCH (09:41)
[2022-10-04 12:00] VITALS: BP 92/65; PULSE 78; RESP 20; TEMP 97.7
[2022-10-04] MEDS ORDERED: METO25XL PO (15:51)
[2022-10-04] MEDS ORDERED: SACU1TAB PO (15:51)
[2022-10-04] MEDS ORDERED: ASPI81 PO (15:51)
[2022-10-04] MEDS ORDERED: FURO40 PO (15:51)
[2022-10-04] MEDS ORDERED: BICIT30L PO (15:51)
[2022-10-04 16:30] VITALS: BP 109/64; PULSE 82; RESP 20; TEMP 97.5
== END 2022-10-04 18:30 | disposition home or self-care (01) | DRG 194 ==
LOC: EMS 18:12 → 5S 21:35
PROVIDERS: ADMIT Internal Medicine; ATTEND Internal Medicine
DX: I13.0 Hypertensive heart and chronic kidney disease with heart failure and stage 1 through stage 4 chronic kidney disease, or unspecified chronic kidney disease (principal); R57.8 Other shock; N17.0 Acute kidney failure with tubular necrosis; E44.0 Moderate protein-calorie malnutrition; D63.1 Anemia in chronic kidney disease; E87.20 Acidosis, unspecified; N25.81 Secondary hyperparathyroidism of renal origin; I50.43 Acute on chronic combined systolic (congestive) and diastolic (congestive) heart failure; K27.9 Peptic ulcer, site unspecified, unspecified as acute or chronic, without hemorrhage or perforation; Z20.822 Contact with and (suspected) exposure to COVID-19; I25.10 Atherosclerotic heart disease of native coronary artery without angina pectoris; N18.4 Chronic kidney disease, stage 4 (severe); I42.9 Cardiomyopathy, unspecified; Z95.810 Presence of automatic (implantable) cardiac defibrillator; Z86.73 Personal history of transient ischemic attack (TIA), and cerebral infarction without residual deficits; Z68.21 Body mass index [BMI] 21.0-21.9, adult; Z79.899 Other long term (current) drug therapy; Z51.5 Encounter for palliative care
CPT/HCPCS: 70450; 71045; 80048; 80053; 81001; 82962; 83605; 83690; 83735; 83880; 84100; 84484; 85025; 93005; 93306; 99291; J1644; J1940; Q9967; 36415-L1; 36415-TC

== ENCOUNTER 2022-11-12 18:08 | Inpatient (IN) | payer MEDICARE, MEDICAID ==
[~2022-11-12] VITALS: Ht 157.5 cm; Wt 54.9 kg
[~2022-11-12 18:08] MED LIST changes: +ASPI81 PO; +BICIT30L PO; -CHOL500013 PO; -DOCU-385 PO; -FERR325T27 PO; +FURO40 PO; +METO25XL PO; -PANT-31 PO; +SACU1TAB PO
[2022-11-12 18:49] LABS: APPEARANCE,URINE CLEAR (CLEAR); BILIRUBIN,URINE NEGATIVE (NEGATIVE); COLOR,URINE LIGHT YELLOW (YELLOW); GLUCOSE, URINE (UA) TRACE mg/dL (NEGATIVE); KETONES,URINE NEGATIVE (NEGATIVE); LEUKOCYTE ESTERASE ,URINE NEGATIVE (NEGATIVE); NITRATE,URINE NEGATIVE (NEGATIVE); OCCULT BLOOD,URINE NEGATIVE (NEGATIVE); PH,URINE 5.5 (5.0-8.0); PROTEIN,URINE TRACE mg/dL (NEGATIVE); SPECIFIC GRAVITIY, URINE 1.011 (1.003-1.030); UROBILINOGEN,URINE <=1.0 mg/dL (<=1.0)
[2022-11-12 18:58] LABS: BASOPHILS % (AUTO) 0.4 % (0.0-2.0); EOSINOPHILS % (AUTO) 7.6 % (1.0-6.0); HEMATOCRIT 31.5 % (36-46); HEMOGLOBIN 10.1 g/dL (12.0-16.0); LYMPHOCYTES % (AUTO) 20.9 % (22.0-44.0); MEAN CORPUSCULAR HGB CONC 32.2 G/dL (31.0-37.0); MEAN CORPUSCULAR VOLUME 87 fL (80-100); MONOCYTES # (AUTO) 0.2 K/uL (0.1-1.0); MONOCYTES % (AUTO) 4.5 % (2.0-9.0); NEUTROPHILS # (AUTO) 3.1 K/uL (1.8-7.7); NEUTROPHILS % (AUTO) 66.6 % (40.0-70.0); PLATELET COUNT (AUTO) 278 K/uL (150-450); RED BLOOD CELL COUNT(AUTO) 3.62 MIL/uL (4.00-5.20); WHITE BLOOD COUNT (AUTO) 4.7 K/uL (4.5-11.0)
[2022-11-12 19:09] LABS: ANION GAP 14 mmol/L (8-16); CARBON DIOXIDE 21 mmol/L (22-29); CHLORIDE 105 mmol/L (98-107); CREATININE 3.92 mg/dL (0.60-1.30); GLOMERULAR FILTR. RATE CALC 12 mL/min (>60); GLUCOSE,RANDOM 121 mg/dL (70-110); POTASSIUM 4.1 mmol/L (3.5-5.1); SODIUM SERUM 140 mmol/L (136-145); UREA NITROGEN, BLOOD 75 mg/dL (7-18)
[2022-11-12 19:15] LABS: TROPONIN I-HIGH SENSITIVITY 40 ng/L (<51)
[2022-11-12 19:23] LABS: ALANINE AMINOTRANSFERASE 27 U/L (12-78); ALBUMIN 3.3 g/dL (3.4-5.0); ALKALINE PHOSPHATASE 99 U/L (46-116); ASPARTATE AMINOTRANSFERASE 17 U/L (15-37); BILIRUBIN,TOTAL 0.6 mg/dL (0.1-1.0); TOTAL PROTEIN, SERUM 7.4 g/dL (6.4-8.2)
[2022-11-12 19:56] LABS: B-TYPE NATRIURETIC PEPTIDE > 5000 pg/mL (0-100)
[2022-11-12] MEDS ORDERED: FUROSEMIDE 20 MG/2 ML VIAL IVP ONE (20:30)
[2022-11-12 21:03] LABS: COVID AG,FIA SOURCE NASAL SWAB
[2022-11-12] MEDS ORDERED: ONDANSETRON HCL 4 MG/2 ML VIAL IVP PRN ×2 (21:15→22:30)
[2022-11-12] MEDS ORDERED: ACETAMINOPHEN 325 MG TABLET PO PRN ×2 (21:15→22:30)
[2022-11-12] MEDS ORDERED: 0.9% SODIUM CHLORIDE 10 ML SYRINGE IVP PRN (21:15)
[2022-11-12 21:23] LABS: TROPONIN I-HIGH SENSITIVITY 40 ng/L (<51)
[2022-11-12 21:29] LABS: SARS-COV2 (COVID) ANTIGEN,FIA Negative (Negative)
[2022-11-12] MEDS ORDERED: BISACODYL 10 MG RECTAL RECTAL SUPPOSITORY PR PRN (22:30)
[2022-11-12] MEDS ORDERED: MORPHINE SULFATE 2 MG/ML SYRINGE IVP PRN (22:30)
[2022-11-12] MEDS ORDERED: MAGNESIUM HYDROXIDE SUSPENSION 30 ML UDCUP PO PRN (22:30)
[2022-11-12] MEDS ORDERED: ZOLPIDEM TARTRATE 5 MG TABLET PO PRN (22:30)
[2022-11-13] MEDS: HEPARIN SODIUM,PORCINE 5,000 UNITS/ML VIAL SQ SCH ×3 (00:33→16:44)
[2022-11-13] MEDS: FUROSEMIDE 40 MG/4 ML VIAL IVP SCH ×3 (00:33→16:44)
[2022-11-13 05:18] LABS: BASOPHILS % (AUTO) 0.5 % (0.0-2.0); EOSINOPHILS % (AUTO) 9.2 % (1.0-6.0); HEMATOCRIT 29.8 % (36-46); HEMOGLOBIN 9.7 g/dL (12.0-16.0); LYMPHOCYTES # (AUTO) 1.1 K/uL (1.0-4.8); LYMPHOCYTES % (AUTO) 22.6 % (22.0-44.0); MEAN CORPUSCULAR HEMOGLOBIN 27.9 pg (26.0-34.0); MEAN CORPUSCULAR HGB CONC 32.6 G/dL (31.0-37.0); MEAN CORPUSCULAR VOLUME 86 fL (80-100); MONOCYTES # (AUTO) 0.3 K/uL (0.1-1.0); MONOCYTES % (AUTO) 5.8 % (2.0-9.0); NEUTROPHILS # (AUTO) 3.1 K/uL (1.8-7.7); NEUTROPHILS % (AUTO) 61.9 % (40.0-70.0); PLATELET COUNT (AUTO) 258 K/uL (150-450); RED BLOOD CELL COUNT(AUTO) 3.48 MIL/uL (4.00-5.20); RED CELL DISTRIBUTION WIDTH 14.9 % (11.5-14.5); WHITE BLOOD COUNT (AUTO) 5.1 K/uL (4.5-11.0)
[2022-11-13 05:34] LABS: ALBUMIN 2.9 g/dL (3.4-5.0); BILIRUBIN,TOTAL 0.6 mg/dL (0.1-1.0); CALCIUM, TOTAL 8.9 mg/dL (8.8-10.5); CREATININE 3.67 mg/dL (0.60-1.30); POTASSIUM 3.6 mmol/L (3.5-5.1); TOTAL PROTEIN, SERUM 6.7 g/dL (6.4-8.2)
[2022-11-13 05:37] LABS: CHOL/HDL RATIO 3.6 (3.9-5.7)
[2022-11-13] MEDS: ASPIRIN 81 MG CHEWABLE TABLET PO SCH (09:06)
[2022-11-13] MEDS: CITRIC ACID/SODIUM CITRATE 30 ML SOLUTION UDCUP PO SCH ×2 (09:06→21:22)
[2022-11-13] MEDS: PANTOPRAZOLE SODIUM 40 MG DR TABLET PO SCH (09:07)
[2022-11-13] MEDS: DOCUSATE SODIUM 100 MG CAPSULE PO SCH ×2 (09:07→20:15)
[2022-11-13 12:18] VITALS: BP 108/76; PULSE 113; RESP 16; TEMP 98.4
[2022-11-13] MEDS ORDERED: POTASSIUM CHLORIDE 10% 40 MEQ/30 ML LIQUID UDCUP PO ONE (15:30)
[2022-11-13 17:02] VITALS: BP 109/72; PULSE 119; RESP 13; TEMP 97.4
[2022-11-13 18:55] VITALS: BP 98/61; PULSE 120; RESP 17; TEMP 97.8
[2022-11-13] MEDS: METOPROLOL SUCCINATE 25 MG ER TABLET PO SCH (20:15)
[2022-11-13] MEDS ORDERED: FUROSEMIDE 40 MG/4 ML VIAL IVP SCH (21:00)
[2022-11-14 00:07] VITALS: BP 96/71; PULSE 83; RESP 16; TEMP 98.6
[2022-11-14] MEDS: HEPARIN SODIUM,PORCINE 5,000 UNITS/ML VIAL SQ SCH ×4 (00:11→23:27)
[2022-11-14] MEDS: FUROSEMIDE 40 MG/4 ML VIAL IVP SCH ×4 (00:11→23:28)
[2022-11-14 04:33] VITALS: BP 106/71; PULSE 87; RESP 16; TEMP 98.6
[2022-11-14 07:19] VITALS: BP 97/61; PULSE 79; RESP 16; TEMP 97.7
[2022-11-14 07:41] LABS: CALCIUM, TOTAL 8.8 mg/dL (8.8-10.5); CREATININE 3.66 mg/dL (0.60-1.30); POTASSIUM 3.7 mmol/L (3.5-5.1)
[2022-11-14] MEDS: DOCUSATE SODIUM 100 MG CAPSULE PO SCH ×2 (08:40→20:14)
[2022-11-14] MEDS: CITRIC ACID/SODIUM CITRATE 30 ML SOLUTION UDCUP PO SCH ×2 (08:40→20:14)
[2022-11-14] MEDS: ASPIRIN 81 MG CHEWABLE TABLET PO SCH (08:40)
[2022-11-14] MEDS: PANTOPRAZOLE SODIUM 40 MG DR TABLET PO SCH (08:40)
[2022-11-14] MEDS: ATORVASTATIN CALCIUM 20 MG TABLET PO SCH (09:53)
[2022-11-14 11:01] VITALS: BP 98/63; PULSE 83; RESP 18; TEMP 98.4
[2022-11-14 16:25] VITALS: BP 102/77; PULSE 86; RESP 18; TEMP 97.7
[2022-11-14 19:49] VITALS: BP 97/65; PULSE 105; RESP 17; TEMP 97.9
[2022-11-14] MEDS: METOPROLOL SUCCINATE 25 MG ER TABLET PO SCH (20:12)
[2022-11-15] VITALS (8 sets, daily range): BP systolic 89–101; BP diastolic 50–69; PULSE 96–108; RESP 16–18; TEMP 97.7–98.5
[2022-11-15 07:02] LABS: BASOPHILS % (AUTO) 0.5 % (0.0-2.0); EOSINOPHILS % (AUTO) 9.5 % (1.0-6.0); HEMATOCRIT 32.4 % (36-46); HEMOGLOBIN 10.8 g/dL (12.0-16.0); LYMPHOCYTES # (AUTO) 1.1 K/uL (1.0-4.8); LYMPHOCYTES % (AUTO) 23.4 % (22.0-44.0); MEAN CORPUSCULAR HEMOGLOBIN 28.2 pg (26.0-34.0); MEAN CORPUSCULAR HGB CONC 33.2 G/dL (31.0-37.0); MEAN CORPUSCULAR VOLUME 85 fL (80-100); MONOCYTES # (AUTO) 0.3 K/uL (0.1-1.0); MONOCYTES % (AUTO) 6.7 % (2.0-9.0); NEUTROPHILS # (AUTO) 2.8 K/uL (1.8-7.7); NEUTROPHILS % (AUTO) 59.9 % (40.0-70.0); PLATELET COUNT (AUTO) 282 K/uL (150-450); RED BLOOD CELL COUNT(AUTO) 3.81 MIL/uL (4.00-5.20); RED CELL DISTRIBUTION WIDTH 14.8 % (11.5-14.5); WHITE BLOOD COUNT (AUTO) 4.7 K/uL (4.5-11.0)
[2022-11-15 07:18] LABS: CALCIUM, TOTAL 9.1 mg/dL (8.8-10.5); CREATININE 3.55 mg/dL (0.60-1.30); POTASSIUM 3.5 mmol/L (3.5-5.1)
[2022-11-15] MEDS: DOCUSATE SODIUM 100 MG CAPSULE PO SCH ×3 (09:00→20:43)
[2022-11-15] MEDS: ATORVASTATIN CALCIUM 20 MG TABLET PO SCH (09:08)
[2022-11-15] MEDS: PANTOPRAZOLE SODIUM 40 MG DR TABLET PO SCH (09:08)
[2022-11-15] MEDS: ASPIRIN 81 MG CHEWABLE TABLET PO SCH (09:08)
[2022-11-15] MEDS: HEPARIN SODIUM,PORCINE 5,000 UNITS/ML VIAL SQ SCH ×2 (09:08→16:00)
[2022-11-15] MEDS: FUROSEMIDE 40 MG/4 ML VIAL IVP SCH ×2 (09:08→16:00)
[2022-11-15] MEDS: CITRIC ACID/SODIUM CITRATE 30 ML SOLUTION UDCUP PO SCH ×2 (09:08→20:34)
[2022-11-15] MEDS: METOPROLOL SUCCINATE 25 MG ER TABLET PO SCH (09:28)
[2022-11-15] MEDS: MIDODRINE HCL 5 MG TABLET PO SCH ×2 (18:16→21:50)
[2022-11-16] VITALS (8 sets, daily range): BP systolic 86–100; BP diastolic 56–68; PULSE 84–108; RESP 16–19; TEMP 97.4–98.6
[2022-11-16] MEDS: FUROSEMIDE 40 MG/4 ML VIAL IVP SCH (00:06)
[2022-11-16] MEDS: HEPARIN SODIUM,PORCINE 5,000 UNITS/ML VIAL SQ SCH ×4 (00:06→23:33)
[2022-11-16] MEDS: FUROSEMIDE 40 MG TABLET PO SCH ×2 (08:24→20:04)
[2022-11-16] MEDS: DOCUSATE SODIUM 100 MG CAPSULE PO SCH ×2 (08:24→20:04)
[2022-11-16] MEDS: PANTOPRAZOLE SODIUM 40 MG DR TABLET PO SCH (08:24)
[2022-11-16] MEDS: CITRIC ACID/SODIUM CITRATE 30 ML SOLUTION UDCUP PO SCH ×2 (08:24→20:04)
[2022-11-16] MEDS: METOPROLOL SUCCINATE 25 MG ER TABLET PO SCH (08:25)
[2022-11-16] MEDS: HYDROCODONE/ACETAMINOPHEN 5-325 MG TABLET PO PRN ×3 (08:25→17:21)
[2022-11-16] MEDS: ATORVASTATIN CALCIUM 20 MG TABLET PO SCH (08:25)
[2022-11-16] MEDS: ASPIRIN 81 MG CHEWABLE TABLET PO SCH (08:25)
[2022-11-16] MEDS: MIDODRINE HCL 5 MG TABLET PO SCH ×2 (17:22→20:04)
[2022-11-17] VITALS (8 sets, daily range): BP systolic 79–98; BP diastolic 52–67; PULSE 84–111; RESP 16–20; TEMP 97.3–98.5
[2022-11-17 07:09] LABS: BASOPHILS % (AUTO) 0.5 % (0.0-2.0); EOSINOPHILS % (AUTO) 12.9 % (1.0-6.0); HEMATOCRIT 30.8 % (36-46); HEMOGLOBIN 10.3 g/dL (12.0-16.0); LYMPHOCYTES # (AUTO) 1.4 K/uL (1.0-4.8); LYMPHOCYTES % (AUTO) 28.8 % (22.0-44.0); MEAN CORPUSCULAR HEMOGLOBIN 28.2 pg (26.0-34.0); MEAN CORPUSCULAR HGB CONC 33.5 G/dL (31.0-37.0); MEAN CORPUSCULAR VOLUME 84 fL (80-100); MONOCYTES # (AUTO) 0.3 K/uL (0.1-1.0); MONOCYTES % (AUTO) 7.1 % (2.0-9.0); NEUTROPHILS # (AUTO) 2.5 K/uL (1.8-7.7); NEUTROPHILS % (AUTO) 50.7 % (40.0-70.0); PLATELET COUNT (AUTO) 293 K/uL (150-450); RED BLOOD CELL COUNT(AUTO) 3.66 MIL/uL (4.00-5.20); RED CELL DISTRIBUTION WIDTH 14.8 % (11.5-14.5); WHITE BLOOD COUNT (AUTO) 4.8 K/uL (4.5-11.0)
[2022-11-17 07:28] LABS: CALCIUM, TOTAL 9.2 mg/dL (8.8-10.5); CREATININE 3.92 mg/dL (0.60-1.30); POTASSIUM 3.6 mmol/L (3.5-5.1)
[2022-11-17] MEDS: FUROSEMIDE 40 MG TABLET PO SCH ×2 (09:00→20:56)
[2022-11-17] MEDS: METOPROLOL SUCCINATE 25 MG ER TABLET PO SCH (09:00)
[2022-11-17] MEDS: PANTOPRAZOLE SODIUM 40 MG DR TABLET PO SCH (09:29)
[2022-11-17] MEDS: CITRIC ACID/SODIUM CITRATE 30 ML SOLUTION UDCUP PO SCH (09:29)
[2022-11-17] MEDS: HEPARIN SODIUM,PORCINE 5,000 UNITS/ML VIAL SQ SCH ×2 (09:30→16:19)
[2022-11-17] MEDS: ASPIRIN 81 MG CHEWABLE TABLET PO SCH (09:30)
[2022-11-17] MEDS: ATORVASTATIN CALCIUM 20 MG TABLET PO SCH (09:30)
[2022-11-17] MEDS: DOCUSATE SODIUM 100 MG CAPSULE PO SCH ×2 (09:30→21:05)
[2022-11-17] MEDS: MIDODRINE HCL 5 MG TABLET PO SCH ×3 (09:30→21:05)
[2022-11-17] MEDS ORDERED: MIDODRINE HCL 5 MG TABLET PO ONE (11:30)
[2022-11-18] VITALS: BP 92/61; PULSE 90; RESP 16; TEMP 97.8
[2022-11-18 01:38] VITALS: BP 103/74; PULSE 82; RESP 18; TEMP 98
[2022-11-18 04:40] VITALS: BP 102/65; PULSE 87; RESP 18; TEMP 98
[2022-11-18 07:27] LABS: BASOPHILS % (AUTO) 0.5 % (0.0-2.0); EOSINOPHILS % (AUTO) 12.3 % (1.0-6.0); HEMATOCRIT 29.8 % (36-46); HEMOGLOBIN 9.8 g/dL (12.0-16.0); LYMPHOCYTES # (AUTO) 1.4 K/uL (1.0-4.8); LYMPHOCYTES % (AUTO) 32.1 % (22.0-44.0); MEAN CORPUSCULAR HEMOGLOBIN 28.2 pg (26.0-34.0); MEAN CORPUSCULAR HGB CONC 32.9 G/dL (31.0-37.0); MEAN CORPUSCULAR VOLUME 86 fL (80-100); MONOCYTES # (AUTO) 0.3 K/uL (0.1-1.0); MONOCYTES % (AUTO) 7.1 % (2.0-9.0); NEUTROPHILS # (AUTO) 2.1 K/uL (1.8-7.7); PLATELET COUNT (AUTO) 274 K/uL (150-450); RED BLOOD CELL COUNT(AUTO) 3.48 MIL/uL (4.00-5.20); WHITE BLOOD COUNT (AUTO) 4.5 K/uL (4.5-11.0)
[2022-11-18 07:41] LABS: CALCIUM, TOTAL 9.3 mg/dL (8.8-10.5); CREATININE 3.79 mg/dL (0.60-1.30); MAGNESIUM 2.8 mg/dL (1.80-2.40); PHOSPHORUS 4.9 mg/dL (2.5-4.9); POTASSIUM 3.7 mmol/L (3.5-5.1)
[2022-11-18] MEDS: FUROSEMIDE 40 MG TABLET PO SCH (08:30)
[2022-11-18] MEDS: ASPIRIN 81 MG CHEWABLE TABLET PO SCH (08:30)
[2022-11-18] MEDS: HEPARIN SODIUM,PORCINE 5,000 UNITS/ML VIAL SQ SCH ×2 (08:30)
[2022-11-18] MEDS: ATORVASTATIN CALCIUM 20 MG TABLET PO SCH (08:30)
[2022-11-18] MEDS: DOCUSATE SODIUM 100 MG CAPSULE PO SCH (08:30)
[2022-11-18] MEDS: PANTOPRAZOLE SODIUM 40 MG DR TABLET PO SCH (08:30)
[2022-11-18 08:32] VITALS: BP 101/62; PULSE 98; RESP 18; TEMP 97.4
[2022-11-18] MEDS: MIDODRINE HCL 5 MG TABLET PO SCH (08:35)
[2022-11-18] MEDS: METOPROLOL SUCCINATE 25 MG ER TABLET PO SCH (08:35)
[2022-11-18 12:25] VITALS: BP 88/58; PULSE 98; RESP 16; TEMP 97.7
[2022-11-18 13:00] VITALS: BP 99/70
[2022-11-18] MEDS ORDERED: ATOR20TA65 PO (14:08)
[2022-11-18] MEDS ORDERED: METO25XL PO (14:08)
[2022-11-18] MEDS ORDERED: MIDO5TAB29 PO (14:11)
== END 2022-11-18 15:00 | disposition home or self-care (01) | DRG 291 ==
LOC: EMS 18:09 → ICU 11-13 11:20 → 5S 11-13 18:45
PROVIDERS: ADMIT Internal Medicine; ATTEND Internal Medicine
DX: I13.2 Hypertensive heart and chronic kidney disease with heart failure and with stage 5 chronic kidney disease, or end stage renal disease (principal); E43 Unspecified severe protein-calorie malnutrition; I50.43 Acute on chronic combined systolic (congestive) and diastolic (congestive) heart failure; N17.9 Acute kidney failure, unspecified; I82.B21 Chronic embolism and thrombosis of right subclavian vein; N18.5 Chronic kidney disease, stage 5; I42.9 Cardiomyopathy, unspecified; E78.5 Hyperlipidemia, unspecified; D63.1 Anemia in chronic kidney disease; I25.10 Atherosclerotic heart disease of native coronary artery without angina pectoris; I08.3 Combined rheumatic disorders of mitral, aortic and tricuspid valves; Z79.899 Other long term (current) drug therapy; Z86.73 Personal history of transient ischemic attack (TIA), and cerebral infarction without residual deficits; Z95.810 Presence of automatic (implantable) cardiac defibrillator; Z68.22 Body mass index [BMI] 22.0-22.9, adult
CPT/HCPCS: 71045; 80048; 80053; 80061; 81003; 83735; 83880; 84100; 84484; 85025; 87081; 92507; 92521; 92526; 92610; 93005; 93970; 99291; J1644; J1940; 36415-L1; 36415-TC

== ENCOUNTER 2023-04-08 14:37 | Inpatient (IN) | payer MEDICARE, MEDICAID ==
[~2023-04-08] VITALS: Ht 157.5 cm; Wt 57.2 kg
[~2023-04-08 14:37] MED LIST changes: +ATOR20TA65 PO; -BICIT30L PO; +MIDO5TAB29 PO; -SACU1TAB PO
[2023-04-08] MEDS ORDERED: FURO40TA5 PO (14:51)
[2023-04-08] MEDS ORDERED: ASPI-1522 PO (14:51)
[2023-04-08 15:41] LABS: BASOPHILS % (AUTO) 0.7 % (0.0-2.0); EOSINOPHILS % (AUTO) 1.1 % (1.0-6.0); HEMATOCRIT 30.5 % (36-46); HEMOGLOBIN 9.6 g/dL (12.0-16.0); LYMPHOCYTES # (AUTO) 0.8 K/uL (1.0-4.8); LYMPHOCYTES % (AUTO) 20.5 % (22.0-44.0); MEAN CORPUSCULAR HEMOGLOBIN 23.4 pg (26.0-34.0); MEAN CORPUSCULAR HGB CONC 31.6 G/dL (31.0-37.0); MEAN CORPUSCULAR VOLUME 74 fL (80-100); MONOCYTES # (AUTO) 0.4 K/uL (0.1-1.0); MONOCYTES % (AUTO) 9.8 % (2.0-9.0); NEUTROPHILS # (AUTO) 2.8 K/uL (1.8-7.7); NEUTROPHILS % (AUTO) 67.9 % (40.0-70.0); PLATELET COUNT (AUTO) 272 K/uL (150-450); RED BLOOD CELL COUNT(AUTO) 4.12 MIL/uL (4.00-5.20); RED CELL DISTRIBUTION WIDTH 21.4 % (11.5-14.5); WHITE BLOOD COUNT (AUTO) 4.1 K/uL (4.5-11.0)
[2023-04-08 15:47] LABS: ANION GAP 13 mmol/L (8-16); CALCIUM, TOTAL 9.5 mg/dL (8.8-10.5); CARBON DIOXIDE 24 mmol/L (22-29); CHLORIDE 101 mmol/L (98-107); CREATININE 3.05 mg/dL (0.60-1.30); GLOMERULAR FILTR. RATE CALC 15 mL/min (>60); GLUCOSE,RANDOM 124 mg/dL (70-110); POTASSIUM 3.9 mmol/L (3.5-5.1); SODIUM SERUM 138 mmol/L (136-145); UREA NITROGEN, BLOOD 94 mg/dL (7-18)
[2023-04-08 15:54] LABS: ALANINE AMINOTRANSFERASE 29 U/L (12-78); ALBUMIN 3.5 g/dL (3.4-5.0); ALKALINE PHOSPHATASE 93 U/L (46-116); ASPARTATE AMINOTRANSFERASE 18 U/L (15-37); BILIRUBIN,TOTAL 1.3 mg/dL (0.1-1.0); TOTAL PROTEIN, SERUM 7.1 g/dL (6.4-8.2)
[2023-04-08 15:55] LABS: B-TYPE NATRIURETIC PEPTIDE > 5000 pg/mL (0-100)
[2023-04-08 15:58] LABS: TROPONIN I-HIGH SENSITIVITY 30 ng/L (<51)
[2023-04-08 16:03] LABS: APPEARANCE,URINE CLEAR (CLEAR); BILIRUBIN,URINE NEGATIVE (NEGATIVE); COLOR,URINE LIGHT YELLOW (YELLOW); GLUCOSE, URINE (UA) NEGATIVE (NEGATIVE); KETONES,URINE NEGATIVE (NEGATIVE); LEUKOCYTE ESTERASE ,URINE NEGATIVE (NEGATIVE); NITRATE,URINE NEGATIVE (NEGATIVE); OCCULT BLOOD,URINE NEGATIVE (NEGATIVE); PH,URINE 5.5 (5.0-8.0); PROTEIN,URINE NEGATIVE (NEGATIVE); UROBILINOGEN,URINE <=1.0 mg/dL (<=1.0)
[2023-04-08 17:08] LABS: INR 1.2 (0.9-1.1); PROTHROMBIN TIME 12.7 SEC (9.4-11.6)
[2023-04-08 17:20] LABS: TROPONIN I-HIGH SENSITIVITY 31 ng/L (<51)
[2023-04-08] MEDS: FUROSEMIDE 20 MG/2 ML VIAL IVP ONE (18:01)
[2023-04-08 18:20] LABS: COVID AG,FIA SOURCE NASAL SWAB
[2023-04-08 18:37] LABS: SARS-COV2 (COVID) ANTIGEN,FIA Negative (Negative)
[2023-04-08] MEDS ORDERED: ONDANSETRON HCL 4 MG/2 ML VIAL IVP PRN (19:15)
[2023-04-08] MEDS: DOCUSATE SODIUM 100 MG CAPSULE PO SCH (20:24)
[2023-04-08 21:34] VITALS: BP 104/60; PULSE 74; RESP 18; TEMP 97.3
[2023-04-08] MEDS ORDERED: SODIUM CHLORIDE 0.9% 500 ML IV ONE (21:57)
[2023-04-08] MEDS: CefTRIAXone 1 GM/DEXTROSE 50 ML IV SCH (22:00)
[2023-04-08 22:24] LABS: LACTIC ACID 1.4 mmol/L (0.4-2.0)
[2023-04-08] MEDS ORDERED: INFLUENZA VIRUS VACCINE QVS 2023-24 (6MO+)/PF 60 MCG/0.5 ML SYRINGE IM. ONE (22:45)
[2023-04-08 23:44] LABS: INFLUENZA A-RTPCR,COMBO NEGATIVE (NEGATIVE); INFLUENZA B-RTPCR,COMBO NEGATIVE (NEGATIVE); RESPIRATORY SYNCYTIAL VRS-PCR NEGATIVE (NEGATIVE); SARS COVID19 RTPCR, COMBO NEGATIVE (NEGATIVE)
[2023-04-08] MEDS: HEPARIN SODIUM,PORCINE 5,000 UNITS/ML VIAL SQ SCH (23:50)
[2023-04-08] MEDS: AZITHROMYCIN 500 MG/NS 250 ML IV SCH (23:50)
[2023-04-09] VITALS (7 sets, daily range): BP systolic 93–119; BP diastolic 66–81; PULSE 66–88; RESP 14–18; TEMP 78.3–98.3
[2023-04-09 06:41] LABS: BASOPHILS % (AUTO) 0.5 % (0.0-2.0); EOSINOPHILS % (AUTO) 1.5 % (1.0-6.0); HEMATOCRIT 30.1 % (36-46); HEMOGLOBIN 9.5 g/dL (12.0-16.0); LYMPHOCYTES # (AUTO) 0.8 K/uL (1.0-4.8); LYMPHOCYTES % (AUTO) 19.5 % (22.0-44.0); MEAN CORPUSCULAR HEMOGLOBIN 23.5 pg (26.0-34.0); MEAN CORPUSCULAR HGB CONC 31.6 G/dL (31.0-37.0); MEAN CORPUSCULAR VOLUME 74 fL (80-100); MONOCYTES # (AUTO) 0.4 K/uL (0.1-1.0); NEUTROPHILS # (AUTO) 2.7 K/uL (1.8-7.7); NEUTROPHILS % (AUTO) 69.5 % (40.0-70.0); PLATELET COUNT (AUTO) 261 K/uL (150-450); RED BLOOD CELL COUNT(AUTO) 4.05 MIL/uL (4.00-5.20); RED CELL DISTRIBUTION WIDTH 20.6 % (11.5-14.5); WHITE BLOOD COUNT (AUTO) 3.9 K/uL (4.5-11.0)
[2023-04-09 07:03] LABS: CALCIUM, TOTAL 9.2 mg/dL (8.8-10.5); CREATININE 3.13 mg/dL (0.60-1.30); MAGNESIUM 2.5 mg/dL (1.80-2.40); POTASSIUM 3.5 mmol/L (3.5-5.1)
[2023-04-09] MEDS: ASPIRIN 81 MG DR TABLET PO SCH (07:58)
[2023-04-09] MEDS: METOPROLOL SUCCINATE 25 MG ER TABLET PO SCH (07:59)
[2023-04-09] MEDS: MIDODRINE HCL 5 MG TABLET PO SCH (07:59)
[2023-04-09] MEDS: FUROSEMIDE 40 MG/4 ML VIAL IVP SCH (08:00)
[2023-04-09] MEDS: EPOETIN ALFA 10,000 UNITS/ML VIAL SQ ONE (11:58)
[2023-04-09] MEDS: ATORVASTATIN CALCIUM 20 MG TABLET PO SCH (20:50)
[2023-04-10] VITALS (7 sets, daily range): BP systolic 95–139; BP diastolic 68–90; PULSE 69–86; RESP 16–21; TEMP 97.5–98.2
[2023-04-10] MEDS: ACETAMINOPHEN 325 MG TABLET PO PRN (00:24)
[2023-04-10 06:51] LABS: BASOPHILS % (AUTO) 0.2 % (0.0-2.0); HEMATOCRIT 29.9 % (36-46); HEMOGLOBIN 9.5 g/dL (12.0-16.0); LYMPHOCYTES # (AUTO) 1.2 K/uL (1.0-4.8); LYMPHOCYTES % (AUTO) 28.4 % (22.0-44.0); MEAN CORPUSCULAR HEMOGLOBIN 23.5 pg (26.0-34.0); MEAN CORPUSCULAR HGB CONC 31.7 G/dL (31.0-37.0); MEAN CORPUSCULAR VOLUME 74 fL (80-100); MONOCYTES # (AUTO) 0.3 K/uL (0.1-1.0); MONOCYTES % (AUTO) 8.1 % (2.0-9.0); NEUTROPHILS # (AUTO) 2.5 K/uL (1.8-7.7); NEUTROPHILS % (AUTO) 61.3 % (40.0-70.0); PLATELET COUNT (AUTO) 254 K/uL (150-450); RED BLOOD CELL COUNT(AUTO) 4.02 MIL/uL (4.00-5.20); RED CELL DISTRIBUTION WIDTH 21.3 % (11.5-14.5); WHITE BLOOD COUNT (AUTO) 4.1 K/uL (4.5-11.0)
[2023-04-10 07:09] LABS: CALCIUM, TOTAL 9.1 mg/dL (8.8-10.5); CREATININE 3.1 mg/dL (0.60-1.30); POTASSIUM 3.3 mmol/L (3.5-5.1)
[2023-04-10 11:58] LABS: RBC MORPHOLOGY COMMENT ABNORMAL RBC MORPH
[2023-04-10] MEDS: POTASSIUM CHLORIDE 10 MEQ ER TABLET PO ONE (12:19)
[2023-04-11 05:24] VITALS: BP 114/71; PULSE 79; RESP 18; TEMP 97.6
[2023-04-11 06:55] LABS: BASOPHILS % (AUTO) 0.7 % (0.0-2.0); EOSINOPHILS % (AUTO) 2.1 % (1.0-6.0); HEMOGLOBIN 9.6 g/dL (12.0-16.0); LYMPHOCYTES # (AUTO) 1.2 K/uL (1.0-4.8); LYMPHOCYTES % (AUTO) 29.8 % (22.0-44.0); MEAN CORPUSCULAR HEMOGLOBIN 23.7 pg (26.0-34.0); MEAN CORPUSCULAR HGB CONC 31.9 G/dL (31.0-37.0); MEAN CORPUSCULAR VOLUME 74 fL (80-100); MONOCYTES # (AUTO) 0.3 K/uL (0.1-1.0); NEUTROPHILS # (AUTO) 2.4 K/uL (1.8-7.7); NEUTROPHILS % (AUTO) 59.4 % (40.0-70.0); PLATELET COUNT (AUTO) 263 K/uL (150-450); RED BLOOD CELL COUNT(AUTO) 4.04 MIL/uL (4.00-5.20); RED CELL DISTRIBUTION WIDTH 21.2 % (11.5-14.5)
[2023-04-11 07:12] LABS: CALCIUM, TOTAL 9.4 mg/dL (8.8-10.5); CREATININE 3.23 mg/dL (0.60-1.30); POTASSIUM 3.9 mmol/L (3.5-5.1)
[2023-04-11 07:14] VITALS: BP 109/75; PULSE 83; RESP 18; TEMP 98
[2023-04-11 08:15] LABS: RBC MORPHOLOGY COMMENT ABNORMAL RBC MORPH
[2023-04-11] MEDS: DAPAGLIFLOZIN PROPANEDIOL 5 MG TABLET PO SCH (08:46)
[2023-04-11] MEDS: FUROSEMIDE 40 MG TABLET PO SCH (08:46)
[2023-04-11 11:16] VITALS: BP 112/79; PULSE 84; RESP 18; TEMP 97.9
[2023-04-11 15:26] VITALS: BP 116/78; PULSE 85; RESP 18; TEMP 98
[2023-04-11 21:27] VITALS: BP_SYST 110; BP_SYST 111; BP_DIAS 72; BP_DIAS 73; PULSE 63; PULSE 66; RESP 17; RESP 18; TEMP 97.5; TEMP 97.9
[2023-04-12 01:05] VITALS: BP 99/71; PULSE 65; RESP 17; TEMP 97.5
[2023-04-12 04:58] VITALS: BP 117/82; PULSE 70; RESP 18; TEMP 97.7
[2023-04-12 06:50] LABS: BASOPHILS % (AUTO) 0.9 % (0.0-2.0); EOSINOPHILS % (AUTO) 0.8 % (1.0-6.0); HEMOGLOBIN 9.6 g/dL (12.0-16.0); LYMPHOCYTES # (AUTO) 1.2 K/uL (1.0-4.8); LYMPHOCYTES % (AUTO) 31.3 % (22.0-44.0); MEAN CORPUSCULAR HEMOGLOBIN 23.2 pg (26.0-34.0); MEAN CORPUSCULAR VOLUME 75 fL (80-100); MONOCYTES # (AUTO) 0.3 K/uL (0.1-1.0); MONOCYTES % (AUTO) 7.9 % (2.0-9.0); NEUTROPHILS # (AUTO) 2.4 K/uL (1.8-7.7); NEUTROPHILS % (AUTO) 59.1 % (40.0-70.0); PLATELET COUNT (AUTO) 274 K/uL (150-450); RED BLOOD CELL COUNT(AUTO) 4.14 MIL/uL (4.00-5.20); RED CELL DISTRIBUTION WIDTH 21.1 % (11.5-14.5)
[2023-04-12 07:04] LABS: CALCIUM, TOTAL 9.4 mg/dL (8.8-10.5); CREATININE 3.48 mg/dL (0.60-1.30); POTASSIUM 3.9 mmol/L (3.5-5.1)
[2023-04-12 07:11] VITALS: BP 118/85; PULSE 71; RESP 18; TEMP 98
[2023-04-12 08:14] LABS: RBC MORPHOLOGY COMMENT ABNORMAL RBC MORPH
[2023-04-12 11:41] VITALS: BP 132/83; PULSE 77; RESP 18; TEMP 98
[2023-04-12] MEDS ORDERED: DAPA5TAB PO (14:38)
[2023-04-12] MEDS ORDERED: FURO40TA5 PO (14:38)
[2023-04-12] MEDS ORDERED: AMOX1TAB16 PO (14:38)
[2023-04-12 15:42] VITALS: BP 112/80; PULSE 82; RESP 18; TEMP 98.2
[2023-04-12] MEDS ORDERED: FUROSEMIDE 40 MG TABLET PO SCH (21:00)
== END 2023-04-12 18:15 | disposition home or self-care (01) | DRG 682 ==
LOC: EMS 14:46 → AHU 18:55 → 5N 20:28
PROVIDERS: ADMIT Internal Medicine; ATTEND Internal Medicine
DX: N17.9 Acute kidney failure, unspecified (principal); G93.41 Metabolic encephalopathy; J18.9 Pneumonia, unspecified organism; J96.01 Acute respiratory failure with hypoxia; I50.23 Acute on chronic systolic (congestive) heart failure; I13.0 Hypertensive heart and chronic kidney disease with heart failure and stage 1 through stage 4 chronic kidney disease, or unspecified chronic kidney disease; I82.B21 Chronic embolism and thrombosis of right subclavian vein; Q61.2 Polycystic kidney, adult type; N18.4 Chronic kidney disease, stage 4 (severe); Z20.822 Contact with and (suspected) exposure to COVID-19; D63.1 Anemia in chronic kidney disease; E78.5 Hyperlipidemia, unspecified; E87.6 Hypokalemia; I95.9 Hypotension, unspecified; I25.10 Atherosclerotic heart disease of native coronary artery without angina pectoris; Z79.82 Long term (current) use of aspirin; Z79.899 Other long term (current) drug therapy; Z86.73 Personal history of transient ischemic attack (TIA), and cerebral infarction without residual deficits; Z95.810 Presence of automatic (implantable) cardiac defibrillator
CPT/HCPCS: 0241U; 71045; 80048; 80053; 81003; 82550; 83605; 83735; 83880; 84145; 84484; 85025; 85610; 85730; 87040; 93005; 93306; 99285; J0456; J0696; J0885; J1644; J1940; J7040; Q9967; 36415-L1; 36415-TC

== ENCOUNTER 2023-06-05 16:34 | Inpatient (IN) | payer MEDICARE, MEDICAID ==
[~2023-06-05] VITALS: Ht 162.6 cm; Wt 56.4 kg
[~2023-06-05 16:34] MED LIST changes: +AMOX1TAB16 PO; +ASPI-1522 PO; -ASPI81 PO; +DAPA5TAB PO; -FURO40 PO; +FURO40TA5 PO
[2023-06-05] MEDS ORDERED: FURO20 PO (16:47)
[2023-06-05 17:14] LABS: BASOPHILS % (AUTO) 0.7 % (0.0-2.0); EOSINOPHILS % (AUTO) 1.6 % (1.0-6.0); HEMATOCRIT 28.2 % (36-46); HEMOGLOBIN 8.8 g/dL (12.0-16.0); LYMPHOCYTES # (AUTO) 0.7 K/uL (1.0-4.8); LYMPHOCYTES % (AUTO) 18.2 % (22.0-44.0); MEAN CORPUSCULAR HEMOGLOBIN 22.2 pg (26.0-34.0); MEAN CORPUSCULAR HGB CONC 31.1 G/dL (31.0-37.0); MEAN CORPUSCULAR VOLUME 72 fL (80-100); MONOCYTES # (AUTO) 0.3 K/uL (0.1-1.0); MONOCYTES % (AUTO) 7.5 % (2.0-9.0); NEUTROPHILS # (AUTO) 2.7 K/uL (1.8-7.7); PLATELET COUNT (AUTO) 255 K/uL (150-450); RED BLOOD CELL COUNT(AUTO) 3.95 MIL/uL (4.00-5.20); RED CELL DISTRIBUTION WIDTH 21.3 % (11.5-14.5); WHITE BLOOD COUNT (AUTO) 3.8 K/uL (4.5-11.0)
[2023-06-05 17:22] LABS: ANION GAP 16 mmol/L (8-16); CALCIUM, TOTAL 8.8 mg/dL (8.8-10.5); CARBON DIOXIDE 23 mmol/L (22-29); CHLORIDE 98 mmol/L (98-107); CREATININE 3.02 mg/dL (0.60-1.30); GLOMERULAR FILTR. RATE CALC 16 mL/min (>60); GLUCOSE,RANDOM 134 mg/dL (70-110); POTASSIUM 3.8 mmol/L (3.5-5.1); SODIUM SERUM 137 mmol/L (136-145); UREA NITROGEN, BLOOD 90 mg/dL (7-18)
[2023-06-05 17:27] LABS: ALANINE AMINOTRANSFERASE 40 U/L (12-78); ALBUMIN 3.8 g/dL (3.4-5.0); ALKALINE PHOSPHATASE 111 U/L (46-116); ASPARTATE AMINOTRANSFERASE 35 U/L (15-37); RBC MORPHOLOGY COMMENT ABNORMAL RBC MORPH; TOTAL PROTEIN, SERUM 7.9 g/dL (6.4-8.2)
[2023-06-05 17:28] LABS: B-TYPE NATRIURETIC PEPTIDE > 5000 pg/mL (0-100)
[2023-06-05 17:29] LABS: TROPONIN I-HIGH SENSITIVITY 29 ng/L (<51)
[2023-06-05] MEDS: BUMETANIDE 0.25 MG/ML 4 ML VIAL IVP ONE (19:14)
[2023-06-05] MEDS ORDERED: ONDANSETRON HCL 4 MG/2 ML VIAL IVP PRN (20:15)
[2023-06-05 20:18] LABS: COVID AG,FIA SOURCE NASAL SWAB
[2023-06-05 20:43] LABS: SARS-COV2 (COVID) ANTIGEN,FIA Negative (Negative)
[2023-06-05] MEDS: ATORVASTATIN CALCIUM 20 MG TABLET PO SCH (20:54)
[2023-06-05] MEDS: DOCUSATE SODIUM 100 MG CAPSULE PO SCH (20:54)
[2023-06-05] MEDS: MIDODRINE HCL 5 MG TABLET PO SCH (20:54)
[2023-06-06] MEDS: HEPARIN SODIUM,PORCINE 5,000 UNITS/ML VIAL SQ SCH
[2023-06-06 01:17] VITALS: BP 127/82; PULSE 85; RESP 16; TEMP 97.6
[2023-06-06 04:30] VITALS: BP 125/76; PULSE 86; RESP 16; TEMP 97.5
[2023-06-06 06:48] LABS: BASOPHILS % (AUTO) 0.9 % (0.0-2.0); EOSINOPHILS % (AUTO) 1.7 % (1.0-6.0); HEMATOCRIT 27.2 % (36-46); HEMOGLOBIN 8.5 g/dL (12.0-16.0); LYMPHOCYTES # (AUTO) 0.8 K/uL (1.0-4.8); LYMPHOCYTES % (AUTO) 22.5 % (22.0-44.0); MEAN CORPUSCULAR HEMOGLOBIN 22.3 pg (26.0-34.0); MEAN CORPUSCULAR HGB CONC 31.4 G/dL (31.0-37.0); MEAN CORPUSCULAR VOLUME 71 fL (80-100); MONOCYTES # (AUTO) 0.3 K/uL (0.1-1.0); MONOCYTES % (AUTO) 9.1 % (2.0-9.0); NEUTROPHILS # (AUTO) 2.4 K/uL (1.8-7.7); NEUTROPHILS % (AUTO) 65.8 % (40.0-70.0); PLATELET COUNT (AUTO) 224 K/uL (150-450); RED BLOOD CELL COUNT(AUTO) 3.83 MIL/uL (4.00-5.20); RED CELL DISTRIBUTION WIDTH 20.9 % (11.5-14.5); WHITE BLOOD COUNT (AUTO) 3.6 K/uL (4.5-11.0)
[2023-06-06] MEDS: BUMETANIDE 0.25 MG/ML 4 ML VIAL IVP SCH ×2 (06:52→20:55)
[2023-06-06 07:02] LABS: CALCIUM, TOTAL 8.5 mg/dL (8.8-10.5); CREATININE 2.92 mg/dL (0.60-1.30); MAGNESIUM 2.6 mg/dL (1.80-2.40); POTASSIUM 3.2 mmol/L (3.5-5.1)
[2023-06-06 07:45] VITALS: BP 111/69; PULSE 86; RESP 18; TEMP 97.9
[2023-06-06 08:16] LABS: RBC MORPHOLOGY COMMENT ABNORMAL RBC MORPH
[2023-06-06] MEDS: METOPROLOL SUCCINATE 25 MG ER TABLET PO SCH (09:18)
[2023-06-06] MEDS: ASPIRIN 81 MG DR TABLET PO SCH (09:19)
[2023-06-06 11:52] VITALS: BP 113/76; PULSE 80; RESP 18; TEMP 97.5
[2023-06-06] MEDS: POTASSIUM CHLORIDE 20 MEQ ER TABLET PO ONE (12:38)
[2023-06-06 16:55] VITALS: BP 111/79; PULSE 84; RESP 18; TEMP 97.4
[2023-06-06 20:00] VITALS: BP 108/77; PULSE 94; RESP 18; TEMP 97.9
[2023-06-07] VITALS: BP 106/71; PULSE 85; RESP 18; TEMP 97.9
[2023-06-07 04:00] VITALS: BP 112/71; PULSE 81; RESP 18; TEMP 97.8
[2023-06-07 05:19] LABS: PH,URINE DRUG SCREEN 6.5 (5.0-8.0)
[2023-06-07 05:26] LABS: ALCOHOL, URINE DRUG SCREEN NEGATIVE (NEGATIVE); AMPHET/METH SCREEN,URINE NEGATIVE (NEGATIVE); BARBITURATE SCREEN, URINE NEGATIVE (NEGATIVE); BENZODIAZEPINES SCREEN,URINE NEGATIVE (NEGATIVE); CANNABINOID SCREEN,URINE NEGATIVE (NEGATIVE); COCAINE SCREEN,URINE NEGATIVE (NEGATIVE); METHADONE SCREEN, URINE NEGATIVE (NEGATIVE); OPIATE SCREEN,URINE NEGATIVE (NEGATIVE); PHENCYCLIDINE SCREEN,URINE NEGATIVE (NEGATIVE)
[2023-06-07 07:00] LABS: BASOPHILS % (AUTO) 0.4 % (0.0-2.0); EOSINOPHILS % (AUTO) 1.3 % (1.0-6.0); HEMATOCRIT 27.6 % (36-46); HEMOGLOBIN 8.8 g/dL (12.0-16.0); LYMPHOCYTES % (AUTO) 25.5 % (22.0-44.0); MEAN CORPUSCULAR HEMOGLOBIN 22.8 pg (26.0-34.0); MEAN CORPUSCULAR HGB CONC 32.1 G/dL (31.0-37.0); MEAN CORPUSCULAR VOLUME 71 fL (80-100); MONOCYTES # (AUTO) 0.3 K/uL (0.1-1.0); MONOCYTES % (AUTO) 8.8 % (2.0-9.0); NEUTROPHILS # (AUTO) 2.4 K/uL (1.8-7.7); PLATELET COUNT (AUTO) 232 K/uL (150-450); RED BLOOD CELL COUNT(AUTO) 3.88 MIL/uL (4.00-5.20); RED CELL DISTRIBUTION WIDTH 21.2 % (11.5-14.5); WHITE BLOOD COUNT (AUTO) 3.8 K/uL (4.5-11.0)
[2023-06-07 07:02] LABS: CALCIUM, TOTAL 8.6 mg/dL (8.8-10.5); CREATININE 3.1 mg/dL (0.60-1.30); POTASSIUM 3.5 mmol/L (3.5-5.1)
[2023-06-07 07:05] LABS: INR 1.2 (0.9-1.1); PROTHROMBIN TIME 12.4 SEC (9.4-11.6)
[2023-06-07 08:00] VITALS: BP 105/67; PULSE 79; RESP 16; TEMP 97.6
[2023-06-07 08:21] LABS: RBC MORPHOLOGY COMMENT ABNORMAL RBC MORPH
[2023-06-07 12:00] VITALS: BP 105/68; PULSE 78; RESP 20; TEMP 98
[2023-06-07 16:00] VITALS: BP 102/71; PULSE 80; RESP 16; TEMP 97.4
[2023-06-07] MEDS: ACETAMINOPHEN 325 MG TABLET PO PRN (16:17)
[2023-06-07 21:21] VITALS: BP 136/71; PULSE 77; RESP 18; TEMP 98
[2023-06-08 00:32] VITALS: BP 103/71; PULSE 78; RESP 18; TEMP 98.2
[2023-06-08 05:47] VITALS: BP 125/67; PULSE 91; RESP 18; TEMP 98.1
[2023-06-08] MEDS ORDERED: RINGERS SOLUTION,LACTATED 1,000 ML IV ONE (06:27)
[2023-06-08 08:00] VITALS: BP 115/66; PULSE 78; RESP 18; TEMP 98
[2023-06-08] MEDS ORDERED: SODIUM CHLORIDE 0.9% 1,000 ML ONE (10:26)
[2023-06-08] MEDS ORDERED: HEPARIN SODIUM,PORCINE 5,000 UNITS/ML VIAL ONE (10:49)
[2023-06-08] MEDS ORDERED: VANCOMYCIN HCL 1 GM/VIAL ONE (10:51)
[2023-06-08] MEDS ORDERED: SODIUM CHLORIDE 0.9% 250 ML IV ONE (10:51)
[2023-06-08] MEDS: SODIUM CHLORIDE 0.9% 1,000 ML IV ONE (11:24)
[2023-06-08] MEDS: CHLORHEXIDINE GLUCONATE 2% TOWELETTE [2'S/6'S] TP ONE (11:24)
[2023-06-08] MEDS: ETHYL ALCOHOL 62% ANTISEPTIC NASAL SANITIZER 0.6 ML AMPUL NASAL ONE (11:25)
[2023-06-08] MEDS ORDERED: HYDROmorphone HCL 2 MG/ML SYRINGE IVP PRN (13:00)
[2023-06-08] MEDS ORDERED: MEPERIDINE-PF 25 MG/ML VIAL IVP PRN (13:00)
[2023-06-08] MEDS ORDERED: FentaNYL CITRATE PF 100 MCG/2 ML VIAL IVP PRN (13:00)
[2023-06-08] MEDS: LIDOCAINE/PF 1% 30 ML VIAL ONE (14:25)
[2023-06-08 19:35] VITALS: BP 106/73; PULSE 84; RESP 18; TEMP 97.2
[2023-06-08 23:00] VITALS: BP 106/73; PULSE 84; RESP 18; TEMP 97.2
[2023-06-08] MEDS: OXYGEN THERAPY IH SCH (23:11)
[2023-06-09 01:56] VITALS: BP 116/79; PULSE 71; RESP 18; TEMP 97.5
[2023-06-09 05:52] VITALS: BP 98/118; PULSE 85; RESP 18; TEMP 97.6
[2023-06-09 05:53] VITALS: BP 118/75; PULSE 85; RESP 18; TEMP 97.6
[2023-06-09] MEDS ORDERED: CeFAZolin SODIUM 1 GM VIAL IVP ONE (06:49)
[2023-06-09] MEDS ORDERED: HEPARIN SODIUM,PORCINE 10,000 UNITS/ML VIAL IV ONE (06:50)
[2023-06-09] MEDS ORDERED: EPHEDrine SULFATE 50 MG/ML VIAL IM ONE (06:50)
[2023-06-09] MEDS ORDERED: PROPOFOL 1% ISO-OSM 1000 MG/100 ML BOTTLE IV ONE (06:51)
[2023-06-09] MEDS ORDERED: 0.9% SODIUM CHLORIDE 10 ML VIAL IVP ONE (06:52)
[2023-06-09] MEDS ORDERED: MIDAZOLAM HCL 2 MG/2 ML VIAL IVP ONE (07:02)
[2023-06-09] MEDS ORDERED: FentaNYL CITRATE PF 100 MCG/2 ML VIAL IVP ONE (07:02)
[2023-06-09 07:26] LABS: BASOPHILS % (AUTO) 0.5 % (0.0-2.0); EOSINOPHILS % (AUTO) 0.8 % (1.0-6.0); HEMATOCRIT 27.6 % (36-46); HEMOGLOBIN 8.8 g/dL (12.0-16.0); LYMPHOCYTES # (AUTO) 0.9 K/uL (1.0-4.8); LYMPHOCYTES % (AUTO) 21.4 % (22.0-44.0); MEAN CORPUSCULAR HEMOGLOBIN 22.7 pg (26.0-34.0); MEAN CORPUSCULAR HGB CONC 31.8 G/dL (31.0-37.0); MEAN CORPUSCULAR VOLUME 71 fL (80-100); MONOCYTES # (AUTO) 0.5 K/uL (0.1-1.0); MONOCYTES % (AUTO) 11.1 % (2.0-9.0); NEUTROPHILS # (AUTO) 2.8 K/uL (1.8-7.7); NEUTROPHILS % (AUTO) 66.2 % (40.0-70.0); PLATELET COUNT (AUTO) 239 K/uL (150-450); RED BLOOD CELL COUNT(AUTO) 3.87 MIL/uL (4.00-5.20); RED CELL DISTRIBUTION WIDTH 21.3 % (11.5-14.5); WHITE BLOOD COUNT (AUTO) 4.2 K/uL (4.5-11.0)
[2023-06-09 07:40] LABS: ALBUMIN 3.5 g/dL (3.4-5.0); BILIRUBIN,TOTAL 0.9 mg/dL (0.1-1.0); CREATININE 3.59 mg/dL (0.60-1.30); MAGNESIUM 2.7 mg/dL (1.80-2.40); PHOSPHORUS 6.1 mg/dL (2.5-4.9); POTASSIUM 3.8 mmol/L (3.5-5.1); TOTAL PROTEIN, SERUM 7.3 g/dL (6.4-8.2)
[2023-06-09 07:42] LABS: RBC MORPHOLOGY COMMENT ABNORMAL RBC MORPH
[2023-06-09] MEDS ORDERED: LOSARTAN POTASSIUM 25 MG TABLET PO SCH (09:00)
[2023-06-09] MEDS: BUMETANIDE 1 MG TABLET PO SCH (09:48)
[2023-06-09] MEDS: EPOETIN ALFA 10,000 UNITS/ML VIAL SQ SCH (09:49)
[2023-06-09 11:43] VITALS: BP 105/70; PULSE 84; RESP 20; TEMP 97.8
[2023-06-09] MEDS ORDERED: BUME1TAB6 PO (14:13)
[2023-06-09] MEDS ORDERED: SPIR-37 PO (14:15)
== END 2023-06-09 16:29 | disposition home or self-care (01) | DRG 264 ==
LOC: EMS 16:58 → 5S 20:32
PROVIDERS: ADMIT Internal Medicine; ATTEND Internal Medicine
PROC: 03170ZD Bypass Right Brachial Artery to Upper Arm Vein, Open Approach (ICD-10-PCS; principal; 2023-06-08 13:30)
DX: I11.0 Hypertensive heart disease with heart failure (principal); I50.23 Acute on chronic systolic (congestive) heart failure; N18.6 End stage renal disease; N17.9 Acute kidney failure, unspecified; Q61.2 Polycystic kidney, adult type; I42.9 Cardiomyopathy, unspecified; D72.819 Decreased white blood cell count, unspecified; Z20.822 Contact with and (suspected) exposure to COVID-19; E11.22 Type 2 diabetes mellitus with diabetic chronic kidney disease; E87.6 Hypokalemia; I44.7 Left bundle-branch block, unspecified; I08.3 Combined rheumatic disorders of mitral, aortic and tricuspid valves; I25.10 Atherosclerotic heart disease of native coronary artery without angina pectoris; D63.1 Anemia in chronic kidney disease; Z79.82 Long term (current) use of aspirin; Z79.899 Other long term (current) drug therapy; Z86.73 Personal history of transient ischemic attack (TIA), and cerebral infarction without residual deficits; Z88.0 Allergy status to penicillin; Z95.810 Presence of automatic (implantable) cardiac defibrillator; Z87.01 Personal history of pneumonia (recurrent)
CPT/HCPCS: 71045; 80048; 80053; 80307; 83036; 83735; 83880; 84100; 84484; 85025; 85610; 85730; 93005; 93970; 99285; G0378; J0690; J0885; J1644; J2250; J2704; J3010; J3370; J3490; J7030; J7050; J7120; 36415-L1; 36415-TC; Z7610

== ENCOUNTER 2024-04-29 22:03 | Emergency (ER) | payer MEDICARE, MEDICAID ==
[~2024-04-29] VITALS: Ht 160 cm; Wt 55.0 kg
[~2024-04-29 22:03] MED LIST changes: -AMOX1TAB16 PO; +BUME1TAB50 PO; -FURO40TA5 PO; +LEVO-72 PO; +MUPI1OIN5 TP; +SEVE800T7 PO; +SPIR-37 PO
[2024-04-29 22:11] VITALS: TEMP 98.3
[2024-04-29 23:13] LABS: BASOPHILS % (AUTO) 0.4 % (0.0-2.0); EOSINOPHILS % (AUTO) 3.8 % (1.0-6.0); HEMATOCRIT 34.1 % (36-46); HEMOGLOBIN 11.2 g/dL (12.0-16.0); LYMPHOCYTES # (AUTO) 0.6 K/uL (1.0-4.8); LYMPHOCYTES % (AUTO) 13.5 % (22.0-44.0); MEAN CORPUSCULAR HEMOGLOBIN 33.1 pg (26.0-34.0); MEAN CORPUSCULAR VOLUME 100 fL (80-100); MONOCYTES # (AUTO) 0.5 K/uL (0.1-1.0); MONOCYTES % (AUTO) 11.3 % (2.0-9.0); NEUTROPHILS # (AUTO) 3.4 K/uL (1.8-7.7); PLATELET COUNT (AUTO) 200 K/uL (150-450); RED CELL DISTRIBUTION WIDTH 15.8 % (11.5-14.5); WHITE BLOOD COUNT (AUTO) 4.8 K/uL (4.5-11.0)
[2024-04-29] MEDS: HYDROCODONE/ACETAMINOPHEN 5-325 MG TABLET PO ONE (23:18)
[2024-04-29] MEDS: LIDOCAINE 5% TRANSDERMAL PATCH TD ONE (23:18)
[2024-04-29 23:27] LABS: ANION GAP 11 mmol/L (8-16); CALCIUM, TOTAL 9.3 mg/dL (8.8-10.5); CARBON DIOXIDE 29 mmol/L (22-29); CHLORIDE 100 mmol/L (98-107); GLOMERULAR FILTR. RATE CALC 9 mL/min (>60); GLUCOSE,RANDOM 121 mg/dL (70-110); POTASSIUM 3.6 mmol/L (3.5-5.1); SODIUM SERUM 140 mmol/L (136-145); UREA NITROGEN, BLOOD 55 mg/dL (7-18)
[2024-04-29 23:31] LABS: BILIRUBIN,DIRECT 0.3 mg/dL (0.00-0.20); BILIRUBIN,TOTAL 0.7 mg/dL (0.1-1.0)
[2024-04-29 23:36] LABS: LIPASE 54 U/L (16-77); TROPONIN I-HIGH SENSITIVITY 30 ng/L (<51)
[2024-04-30 00:23] VITALS: BP 118/66; PULSE 88; RESP 18; O2SAT 96
[2024-04-30 01:07] LABS: APPEARANCE,URINE HAZY (CLEAR); BILIRUBIN,URINE NEGATIVE (NEGATIVE); COLOR,URINE YELLOW (YELLOW); GLUCOSE, URINE (UA) NEGATIVE (NEGATIVE); KETONES,URINE TRACE mg/dL (NEGATIVE); LEUKOCYTE ESTERASE ,URINE MODERATE (NEGATIVE); NITRATE,URINE NEGATIVE (NEGATIVE); OCCULT BLOOD,URINE TRACE (NEGATIVE); PH,URINE 5.5 (5.0-8.0); PROTEIN,URINE 30-70 mg/dL (NEGATIVE); SPECIFIC GRAVITIY, URINE 1.017 (1.003-1.030)
[2024-04-30 01:35] LABS: RBC,URINE 0-2 /HPF (0-2)
[2024-04-30 01:36] LABS: BACTERIA,URINE Many /HPF (None Seen); SQUAMOUS EPITHELIAL CELL,UR Moderate /LPF (None Seen)
== END 2024-04-30 02:00 | disposition home or self-care (01) ==
LOC: EMS 22:03
DX: M54.50 Low back pain, unspecified (principal); I13.2 Hypertensive heart and chronic kidney disease with heart failure and with stage 5 chronic kidney disease, or end stage renal disease; I25.10 Atherosclerotic heart disease of native coronary artery without angina pectoris; I50.9 Heart failure, unspecified; N18.6 End stage renal disease; Z79.82 Long term (current) use of aspirin; Z79.84 Long term (current) use of oral hypoglycemic drugs; Z79.899 Other long term (current) drug therapy; Z88.0 Allergy status to penicillin; Z91.158 Patient's noncompliance with renal dialysis for other reason; Z99.2 Dependence on renal dialysis
CPT/HCPCS: 80048; 80076; 81001; 83690; 84484; 85025; 87086; 93005; 99284

== ENCOUNTER 2024-08-16 14:38 | Emergency (ER) | payer MEDICAID, MEDICARE ==
[~2024-08-16] VITALS: Ht 157.5 cm; Wt 54.0 kg
[2024-08-16 14:53] VITALS: TEMP 98.6
[2024-08-16 15:34] LABS: PLATELET COUNT (AUTO) 128 K/uL (150-450); RED BLOOD CELL COUNT(AUTO) 3.97 MIL/uL (4.00-5.20); RED CELL DISTRIBUTION WIDTH 19.9 % (11.5-14.5); WHITE BLOOD COUNT (AUTO) 4.3 K/uL (4.5-11.0)
[2024-08-16 15:47] LABS: CALCIUM, TOTAL 9.0 mg/dL (8.8-10.5); CREATININE 2.11 mg/dL (0.60-1.30); GLOMERULAR FILTR. RATE CALC 23.0 mL/min (>60); GLUCOSE,RANDOM 125.0 mg/dL (70-110); SODIUM SERUM 138.0 mmol/L (136-145); UREA NITROGEN, BLOOD 19.0 mg/dL (7-18)
[2024-08-16 19:15] VITALS: BP 102/66; PULSE 80; RESP 16; O2SAT 95
[2024-08-16] MEDS ORDERED: ESTR42.510 TP (19:20)
== END 2024-08-16 19:40 | disposition home or self-care (01) ==
LOC: EMS 17:46
DX: N95.2 Postmenopausal atrophic vaginitis (principal); I13.2 Hypertensive heart and chronic kidney disease with heart failure and with stage 5 chronic kidney disease, or end stage renal disease; I50.9 Heart failure, unspecified; N18.9 Chronic kidney disease, unspecified; Z88.0 Allergy status to penicillin; Z79.82 Long term (current) use of aspirin; Z79.84 Long term (current) use of oral hypoglycemic drugs; Z79.899 Other long term (current) drug therapy
CPT/HCPCS: 80048; 84702; 85025; 86850; 86900; 86901; 99283

== ENCOUNTER 2024-08-22 12:51 | Emergency (ER) | payer MEDICARE ==
[~2024-08-22] VITALS: Ht 160 cm; Wt 52.3 kg
[~2024-08-22 12:51] MED LIST changes: +ESTR42.510 TP
[2024-08-22] MEDS: BACITRACIN 0.9 GM PACKET OINTMENT TP ONE (15:48)
[2024-08-22] MEDS: LIDOCAINE 1% 10 ML VIAL SQ ONE (17:02)
[2024-08-22] MEDS ORDERED: BACI28.410 TP (18:52)
[2024-08-22] MEDS: PERTUSS(ACELL),DIPH,TET/PF 0.5 ML SYRINGE [ADULT] IM. ONE (18:57)
[2024-08-22 19:00] VITALS: BP 133/80; PULSE 72; RESP 18; TEMP 98.605328; O2SAT 100
== END 2024-08-22 19:08 | disposition home or self-care (01) ==
LOC: EMS 12:51
DX: S01.81XA Laceration without foreign body of other part of head, initial encounter (principal); S61.412A Laceration without foreign body of left hand, initial encounter; F03.A0 Unspecified dementia, mild, without behavioral disturbance, psychotic disturbance, mood disturbance, and anxiety; I25.10 Atherosclerotic heart disease of native coronary artery without angina pectoris; I13.2 Hypertensive heart and chronic kidney disease with heart failure and with stage 5 chronic kidney disease, or end stage renal disease; N18.6 End stage renal disease; I50.9 Heart failure, unspecified; Z88.0 Allergy status to penicillin; Z99.2 Dependence on renal dialysis; Z79.82 Long term (current) use of aspirin; Z79.899 Other long term (current) drug therapy; W07.XXXA Fall from chair, initial encounter; Y93.89 Activity, other specified; Y92.89 Other specified places as the place of occurrence of the external cause; Y99.8 Other external cause status
CPT/HCPCS: 99285; 70450; 73130; 90715; 90471; 12011; J3490

== ENCOUNTER 2024-08-28 09:30 | Emergency (ER) | payer MEDICARE ==
[~2024-08-28] VITALS: Ht 154.9 cm; Wt 53.0 kg
[~2024-08-28 09:30] MED LIST changes: +BACI28.410 TP; -DAPA5TAB PO; -ESTR42.510 TP; -LEVO-72 PO; -METO25XL PO; -MUPI1OIN5 TP; -SEVE800T7 PO; -SPIR-37 PO
[2024-08-28 09:37] VITALS: TEMP 98.2
[2024-08-28 11:24] VITALS: BP 100/60; PULSE 78; RESP 16; O2SAT 99
== END 2024-08-28 11:30 | disposition home or self-care (01) ==
LOC: EMS 09:41
DX: S01.112D Laceration without foreign body of left eyelid and periocular area, subsequent encounter (principal); I11.0 Hypertensive heart disease with heart failure; I50.9 Heart failure, unspecified; I25.10 Atherosclerotic heart disease of native coronary artery without angina pectoris; Z79.82 Long term (current) use of aspirin; Z79.899 Other long term (current) drug therapy; Z88.0 Allergy status to penicillin; Z99.2 Dependence on renal dialysis; Z98.890 Other specified postprocedural states; X58.XXXD Exposure to other specified factors, subsequent encounter
CPT/HCPCS: 99281; Z7502

== ENCOUNTER 2024-12-30 09:02 | Inpatient (IN) | payer MEDICARE ==
[~2024-12-30] VITALS: Ht 152.4 cm; Wt 52.7 kg
[2024-12-30] MEDS: SODIUM CHLORIDE 0.9% 1,000 ML IV ONE (10:17)
[2024-12-30 10:23] LABS: PLATELET COUNT (AUTO) 245 K/uL (150-450); RED BLOOD CELL COUNT(AUTO) 3.58 MIL/uL (4.00-5.20); RED CELL DISTRIBUTION WIDTH 15.1 % (11.5-14.5); WHITE BLOOD COUNT (AUTO) 5.1 K/uL (4.5-11.0)
[2024-12-30 10:31] LABS: ASPARTATE AMINOTRANSFERASE 16.0 U/L (15-37); TOTAL PROTEIN, SERUM 6.7 g/dL (6.4-8.2)
[2024-12-30 10:33] LABS: CALCIUM, TOTAL 8.4 mg/dL (8.8-10.5); CREATININE 3.54 mg/dL (0.60-1.30); GLOMERULAR FILTR. RATE CALC 13.0 mL/min (>60); GLUCOSE,RANDOM 103.0 mg/dL (70-110); SODIUM SERUM 135.0 mmol/L (136-145); UREA NITROGEN, BLOOD 40.0 mg/dL (7-18)
[2024-12-30] MEDS ORDERED: HEPARIN SODIUM,PORCINE 5,000 UNITS/ML VIAL IVP PRN ×2 (11:30)
[2024-12-30] MEDS ORDERED: HEPARIN SODIUM,PORCINE 5,000 UNITS/ML VIAL IVP ONE (11:30)
[2024-12-30] MEDS ORDERED: ALBUMIN HUMAN 25%-12.5GM/50ML IV BOTTLE ONE (12:00)
[2024-12-30] MEDS: HEPARIN SODIUM,PORCINE 5,000 UNITS/ML VIAL IVP ONE (12:01)
[2024-12-30] MEDS: HEPARIN SODIUM 25000 UNITS/D5W 250 ML IV PRN ×2 (12:03→16:26)
[2024-12-30] MEDS ORDERED: HYDROCODONE/ACETAMINOPHEN 5-325 MG TABLET PO PRN (16:15)
[2024-12-30] MEDS ORDERED: MAGNESIUM HYDROXIDE SUSPENSION 30 ML UDCUP PO PRN (16:15)
[2024-12-30] MEDS ORDERED: MORPHINE SULFATE 4 MG/ML SYRINGE IVP PRN (16:15)
[2024-12-30] MEDS ORDERED: IPRATROPIUM BROMIDE 0.5 MG/2.5 ML NEB SOLUTION NEB PRN (16:15)
[2024-12-30] MEDS ORDERED: ZOLPIDEM TARTRATE 5 MG TABLET PO PRN (16:15)
[2024-12-30] MEDS ORDERED: ONDANSETRON HCL 4 MG/2 ML VIAL IVP PRN (16:15)
[2024-12-30] MEDS ORDERED: BISACODYL 10 MG RECTAL RECTAL SUPPOSITORY PR PRN (16:15)
[2024-12-30] MEDS ORDERED: ACETAMINOPHEN 325 MG TABLET PO PRN (16:15)
[2024-12-30] MEDS ORDERED: ALBUTEROL SULFATE 2.5 MG/0.5 ML NEB SOLUTION NEB PRN (16:15)
[2024-12-30] MEDS: MIDODRINE HCL 5 MG TABLET PO ONE (17:06)
[2024-12-30 17:13] LABS: PLATELET COUNT (AUTO) 235 K/uL (150-450); RED BLOOD CELL COUNT(AUTO) 4.01 MIL/uL (4.00-5.20); RED CELL DISTRIBUTION WIDTH 15.7 % (11.5-14.5); WHITE BLOOD COUNT (AUTO) 6.3 K/uL (4.5-11.0)
[2024-12-30 22:32] VITALS: BP 102/60; PULSE 76; RESP 17; TEMP 97.3; O2SAT 100
[2024-12-30] MEDS: ATORVASTATIN CALCIUM 20 MG TABLET PO SCH (22:42)
[2024-12-30] MEDS: MIDODRINE HCL 5 MG TABLET PO SCH (22:43)
[2024-12-31] VITALS (16 sets, daily range): BP systolic 86–121; BP diastolic 44–67; PULSE 57–87; RESP 17–20; TEMP 96.5–98.4; O2SAT 94–99
[2024-12-31 06:48] LABS: PLATELET COUNT (AUTO) 276 K/uL (150-450); RED BLOOD CELL COUNT(AUTO) 3.66 MIL/uL (4.00-5.20); RED CELL DISTRIBUTION WIDTH 15.1 % (11.5-14.5); WHITE BLOOD COUNT (AUTO) 6.1 K/uL (4.5-11.0)
[2024-12-31 06:57] LABS: CALCIUM, TOTAL 7.9 mg/dL (8.8-10.5); CREATININE 4.14 mg/dL (0.60-1.30); GLOMERULAR FILTR. RATE CALC 11.0 mL/min (>60); GLUCOSE,RANDOM 94.0 mg/dL (70-110); SODIUM SERUM 135.0 mmol/L (136-145); UREA NITROGEN, BLOOD 48.0 mg/dL (7-18)
[2024-12-31] MEDS: ASPIRIN 81 MG DR TABLET PO SCH (08:42)
[2024-12-31] MEDS: PANTOPRAZOLE SODIUM 40 MG DR TABLET PO SCH (08:42)
[2024-12-31] MEDS: HEPARIN SODIUM,PORCINE 5,000 UNITS/ML VIAL IVP PRN (08:45)
[2025-01-01] VITALS (7 sets, daily range): BP systolic 88–102; BP diastolic 54–67; PULSE 74–83; RESP 15–18; TEMP 97.3–97.8; O2SAT 95–98
[2025-01-01 06:50] LABS: PLATELET COUNT (AUTO) 286 K/uL (150-450); RED BLOOD CELL COUNT(AUTO) 3.46 MIL/uL (4.00-5.20); RED CELL DISTRIBUTION WIDTH 15.0 % (11.5-14.5); WHITE BLOOD COUNT (AUTO) 6.7 K/uL (4.5-11.0)
[2025-01-01 07:17] LABS: CALCIUM, TOTAL 8.0 mg/dL (8.8-10.5); CREATININE 2.76 mg/dL (0.60-1.30); GLOMERULAR FILTR. RATE CALC 17.0 mL/min (>60); GLUCOSE,RANDOM 87.0 mg/dL (70-110); SODIUM SERUM 137.0 mmol/L (136-145); UREA NITROGEN, BLOOD 24.0 mg/dL (7-18)
[2025-01-01] MEDS: HEPARIN SODIUM,PORCINE 5,000 UNITS/ML VIAL IVP PRN (08:54)
[2025-01-01] MEDS ORDERED: ALBUMIN HUMAN 25%-12.5GM/50ML IV BOTTLE IV ONE (12:10)
[2025-01-01] MEDS ORDERED: APIXABAN 2.5 MG TABLET PO ONE (14:00)
[2025-01-01] MEDS: HEPARIN SODIUM 25000 UNITS/D5W 250 ML IV PRN (16:23)
[2025-01-02] VITALS (16 sets, daily range): BP systolic 81–106; BP diastolic 57–72; PULSE 72–86; RESP 15–19; TEMP 96–98; O2SAT 95–97
[2025-01-02] MEDS: ALBUMIN HUMAN 25%-12.5GM/50ML IV BOTTLE IV PRN (10:49)
[2025-01-02] MEDS: HEPARIN SODIUM,PORCINE 5,000 UNITS/ML VIAL IVP PRN ×2 (11:42→18:38)
[2025-01-03] VITALS (15 sets, daily range): BP systolic 76–134; BP diastolic 36–69; PULSE 70–99; RESP 16–18; TEMP 97.1–98.1; O2SAT 96–100
[2025-01-03 10:25] LABS: SPECIMENTYPE,BODY FLUID ASCV
[2025-01-03] MEDS ORDERED: SODIUM CHLORIDE 0.9% 1,000 ML ONE (11:12)
[2025-01-03 11:20] LABS: APPEARANCE,SPUN,BODY FLUID CLEAR (CLEAR); APPEARANCE,UNSPUN,BODY FLUID HAZY (CLEAR); COLOR,BODY FLUID YELLOW (LT YELLOW)
[2025-01-03 11:21] LABS: BASOPHILS,BODY FLUID 0 % (1-5); BODY FLUID RBC 420.0 /cu. mm.; EOSINOPHILS,BF (ANAL) 0 %; LYMPHOCYTES,BODY FLUID 35 %; MONOCYTES,BODY FLUID 50 %; NEUTROPHILS,BODY FLUID 15 %; PH, BODY FLUID 9.0 (6.8-7.6); TOTAL VOLUME,BODY FLUID 1070 mL; WBC, BODY FLUID 296 /cu. mm.
[2025-01-03 12:19] LABS: CREATININE 3.23 mg/dL (0.60-1.30); GLUCOSE,RANDOM 85.0 mg/dL (70-110); SODIUM SERUM 134.0 mmol/L (136-145); UREA NITROGEN, BLOOD 25.0 mg/dL (7-18)
[2025-01-03 12:20] LABS: CALCIUM, TOTAL 8.5 mg/dL (8.8-10.5); GLOMERULAR FILTR. RATE CALC 14.0 mL/min (>60)
[2025-01-03] MEDS ORDERED: APIX2.5T PO (12:41)
[2025-01-04 12:07] LABS: AMYLASE, BODY FLUID,REF 37.0 U/L; GLUCOSE, BODY FLUID,REF 75.0 mg/dL; LDH,BODY FLUID,REF 453.0 IU/L; TOTAL PROTEIN,BODY FLUID,REF 4.2 g/dL
== END 2025-01-03 16:10 | disposition home or self-care (01) | DRG 432 ==
LOC: EMS 09:02 → EDH 13:15 → 5S 17:08
PROVIDERS: ADMIT Hospitalist; ATTEND Hospitalist
PROC: 5A1D70Z Performance of Urinary Filtration, Intermittent, Less than 6 Hours Per Day (ICD-10-PCS; 2024-12-31)
PROC: 5A1D70Z Performance of Urinary Filtration, Intermittent, Less than 6 Hours Per Day (ICD-10-PCS; 2025-01-02)
PROC: 0W9G3ZZ Drainage of Peritoneal Cavity, Percutaneous Approach (ICD-10-PCS; principal; 2025-01-03)
PROC: 5A1D70Z Performance of Urinary Filtration, Intermittent, Less than 6 Hours Per Day (ICD-10-PCS; 2025-01-03)
DX: K74.60 Unspecified cirrhosis of liver (principal); N18.6 End stage renal disease; I13.2 Hypertensive heart and chronic kidney disease with heart failure and with stage 5 chronic kidney disease, or end stage renal disease; I82.412 Acute embolism and thrombosis of left femoral vein; R18.8 Other ascites; K76.6 Portal hypertension; D63.1 Anemia in chronic kidney disease; I95.9 Hypotension, unspecified; I82.432 Acute embolism and thrombosis of left popliteal vein; Z99.2 Dependence on renal dialysis; F01.50 Vascular dementia, unspecified severity, without behavioral disturbance, psychotic disturbance, mood disturbance, and anxiety; I70.201 Unspecified atherosclerosis of native arteries of extremities, right leg; Q61.3 Polycystic kidney, unspecified; I50.22 Chronic systolic (congestive) heart failure; I82.442 Acute embolism and thrombosis of left tibial vein; K80.20 Calculus of gallbladder without cholecystitis without obstruction; F02.80 Dementia in other diseases classified elsewhere, unspecified severity, without behavioral disturbance, psychotic disturbance, mood disturbance, and anxiety; I25.10 Atherosclerotic heart disease of native coronary artery without angina pectoris; Z88.0 Allergy status to penicillin; Z86.73 Personal history of transient ischemic attack (TIA), and cerebral infarction without residual deficits
CPT/HCPCS: 49083; 71045; 76700; 76942; 80048; 80076; 82042; 82140; 82150; 82465; 82945; 83615; 83986; 84157; 85025; 85610; 85730; 87075; 87081; 87177; 87205; 87209; 87340; 89051; 90935; 93005; 93306; 93925; 93970; 96361; 96365; 96375; 97163; 99285; J1644; J7030; P9047; 36415-L1; 36415-TC; 87070

== ENCOUNTER 2025-01-14 14:32 | Inpatient (IN) | payer MEDICARE ==
[~2025-01-14] VITALS: Ht 152.4 cm; Wt 50.6 kg
[~2025-01-14 14:32] MED LIST changes: +APIX2.5T PO; -BACI28.410 TP
[2025-01-14] MEDS ORDERED: SODIUM CHLORIDE 0.9% 1,000 ML IV ONE (15:15)
[2025-01-14] MEDS ORDERED: 0.9% SODIUM CHLORIDE 10 ML SYRINGE IVP PRN (15:15)
[2025-01-14 15:55] LABS: COVID AG,FIA SOURCE NASAL SWAB
[2025-01-14 15:56] LABS: PLATELET COUNT (AUTO) 218 K/uL (150-450); RED BLOOD CELL COUNT(AUTO) 3.75 MIL/uL (4.00-5.20); RED CELL DISTRIBUTION WIDTH 16.3 % (11.5-14.5); WHITE BLOOD COUNT (AUTO) 5.5 K/uL (4.5-11.0)
[2025-01-14] MEDS: SODIUM CHLORIDE 0.9% 500 ML IV ONE (16:02)
[2025-01-14 16:04] LABS: CALCIUM, TOTAL 8.2 mg/dL (8.8-10.5); CREATININE 3.50 mg/dL (0.60-1.30); GLOMERULAR FILTR. RATE CALC 13 mL/min (>60); GLUCOSE,RANDOM 103 mg/dL (70-110); SODIUM SERUM 135 mmol/L (136-145); UREA NITROGEN, BLOOD 36 mg/dL (7-18)
[2025-01-14 16:10] LABS: ASPARTATE AMINOTRANSFERASE 23 U/L (15-37); TOTAL PROTEIN, SERUM 6.1 g/dL (6.4-8.2)
[2025-01-14 16:15] LABS: TROPONIN I-HIGH SENSITIVITY 10 ng/L (<51)
[2025-01-14 16:16] LABS: LACTIC ACID 1.9 mmol/L (0.4-2.0)
[2025-01-14 16:26] LABS: SARS-COV2 (COVID) ANTIGEN,FIA Negative (Negative)
[2025-01-14 16:30] LABS: INFLUENZA TYPE A NEGATIVE FOR TYPE A (NEGATIVE); INFLUENZA TYPE B NEGATIVE FOR TYPE B (NEGATIVE)
[2025-01-14] MEDS ORDERED: IOHEXOL 350 MG/ML 100 ML VIAL ONE (17:31)
[2025-01-14] MEDS ORDERED: SODIUM CHLORIDE 0.9% 100 ML ONE (17:31)
[2025-01-14] MEDS ORDERED: 0.9% SODIUM CHLORIDE 10 ML SYRINGE IVP ONE (17:31)
[2025-01-14] MEDS: CefTRIAXone 1 GM/DEXTROSE 50 ML IV SCH (18:34)
[2025-01-14] MEDS ORDERED: HEPARIN SODIUM,PORCINE 5,000 UNITS/ML VIAL IVP PRN (21:00)
[2025-01-14 22:01] VITALS: BP 94/57; PULSE 78; RESP 18; TEMP 97.7; O2SAT 98
[2025-01-15] MEDS ORDERED: HEPARIN SODIUM,PORCINE 5,000 UNITS/ML VIAL SQ SCH
[2025-01-15] MEDS: HEPARIN SODIUM,PORCINE 5,000 UNITS/ML VIAL IVP ONE (00:13)
[2025-01-15] MEDS: HEPARIN SODIUM 25000 UNITS/D5W 250 ML IV PRN (00:14)
[2025-01-15 00:16] VITALS: BP 90/62; PULSE 87; RESP 16; TEMP 97.3; O2SAT 95
[2025-01-15 04:58] VITALS: BP_SYST 141; BP_DIAS 79; BP_DIAS 95; PULSE 84; RESP 18; TEMP 97.3; TEMP 97.5; O2SAT 100; O2SAT 96
[2025-01-15 06:49] LABS: PLATELET COUNT (AUTO) 213 K/uL (150-450); RED BLOOD CELL COUNT(AUTO) 3.61 MIL/uL (4.00-5.20); RED CELL DISTRIBUTION WIDTH 16.3 % (11.5-14.5); WHITE BLOOD COUNT (AUTO) 5.7 K/uL (4.5-11.0)
[2025-01-15 06:57] LABS: CALCIUM, TOTAL 8.1 mg/dL (8.8-10.5); CREATININE 3.89 mg/dL (0.60-1.30); GLOMERULAR FILTR. RATE CALC 12.0 mL/min (>60); GLUCOSE,RANDOM 94.0 mg/dL (70-110); SODIUM SERUM 136.0 mmol/L (136-145); UREA NITROGEN, BLOOD 40.0 mg/dL (7-18)
[2025-01-15] MEDS ORDERED: APIXABAN 2.5 MG TABLET PO SCH (09:00)
[2025-01-15 10:03] VITALS: BP 85/59; PULSE 82; RESP 16; TEMP 98.1; O2SAT 95
[2025-01-15] MEDS: MIDODRINE HCL 5 MG TABLET PO SCH (10:08)
[2025-01-15] MEDS: ASPIRIN 81 MG DR TABLET PO SCH (10:08)
[2025-01-15] MEDS: BUMETANIDE 1 MG TABLET PO SCH (10:08)
[2025-01-15] MEDS: ALBUMIN HUMAN 5%-12.5GM/250ML 250 ML IV ONE (12:13)
[2025-01-15 15:24] VITALS: BP 98/60; PULSE 88; RESP 20; TEMP 97.7; O2SAT 95
[2025-01-15] MEDS ORDERED: SODIUM CHLORIDE 0.9% 250 ML IV ONE (18:23)
[2025-01-15] MEDS: ATORVASTATIN CALCIUM 20 MG TABLET PO SCH (20:45)
[2025-01-15 20:46] VITALS: BP 109/80; PULSE 80; RESP 17; TEMP 97.9; O2SAT 99
[2025-01-16] VITALS (18 sets, daily range): BP systolic 80–118; BP diastolic 56–70; PULSE 72–86; RESP 16–19; TEMP 97.3–98.4; O2SAT 94–100
[2025-01-16] MEDS: ALBUMIN HUMAN 25%-25GM/100ML 100 ML IV ONE (02:14)
[2025-01-16 09:49] LABS: PLATELET COUNT (AUTO) 231 K/uL (150-450); RED BLOOD CELL COUNT(AUTO) 3.57 MIL/uL (4.00-5.20); RED CELL DISTRIBUTION WIDTH 16.0 % (11.5-14.5); WHITE BLOOD COUNT (AUTO) 5.7 K/uL (4.5-11.0)
[2025-01-16 09:51] LABS: CALCIUM, TOTAL 8.8 mg/dL (8.8-10.5); CREATININE 2.57 mg/dL (0.60-1.30); GLOMERULAR FILTR. RATE CALC 19.0 mL/min (>60); GLUCOSE,RANDOM 99.0 mg/dL (70-110); SODIUM SERUM 138.0 mmol/L (136-145); UREA NITROGEN, BLOOD 19.0 mg/dL (7-18)
[2025-01-16] MEDS ORDERED: ALBUMIN HUMAN 25%-12.5GM/50ML IV BOTTLE IV ONE (12:00)
[2025-01-17] VITALS (14 sets, daily range): BP systolic 91–107; BP diastolic 56–88; PULSE 72–95; RESP 15–18; TEMP 97.1–99.1; O2SAT 96–98
[2025-01-17 07:08] LABS: PLATELET COUNT (AUTO) 256 K/uL (150-450); RED BLOOD CELL COUNT(AUTO) 3.48 MIL/uL (4.00-5.20); RED CELL DISTRIBUTION WIDTH 16.9 % (11.5-14.5); WHITE BLOOD COUNT (AUTO) 6.4 K/uL (4.5-11.0)
[2025-01-17 07:14] LABS: CALCIUM, TOTAL 8.4 mg/dL (8.8-10.5); CREATININE 3.25 mg/dL (0.60-1.30); GLOMERULAR FILTR. RATE CALC 14.0 mL/min (>60); GLUCOSE,RANDOM 84.0 mg/dL (70-110); SODIUM SERUM 137.0 mmol/L (136-145); UREA NITROGEN, BLOOD 24.0 mg/dL (7-18)
[2025-01-17] MEDS: METOPROLOL SUCCINATE 25 MG ER TABLET PO SCH (09:00)
[2025-01-17 09:21] LABS: SPECIMENTYPE,BODY FLUID ASCV
[2025-01-17 09:54] LABS: APPEARANCE,SPUN,BODY FLUID CLEAR (CLEAR); APPEARANCE,UNSPUN,BODY FLUID HAZY (CLEAR); COLOR,BODY FLUID LT YELLOW (LT YELLOW)
[2025-01-17 09:55] LABS: TOTAL VOLUME,BODY FLUID 1150 mL
[2025-01-17 10:33] LABS: BASOPHILS,BODY FLUID 0 % (1-5); BODY FLUID RBC 270.0 /cu. mm.; EOSINOPHILS,BF (ANAL) 0 %; LYMPHOCYTES,BODY FLUID 37 %; MONOCYTES,BODY FLUID 43 %; NEUTROPHILS,BODY FLUID 20 %; WBC, BODY FLUID 203 /cu. mm.
[2025-01-17] MEDS ORDERED: SODIUM CHLORIDE 0.9% 2,000 ML ONE (10:44)
[2025-01-17] MEDS: ALBUMIN HUMAN 25%-25GM/100ML 100 ML IV PRN (13:20)
[2025-01-17 13:34] LABS: TROPONIN I-HIGH SENSITIVITY 5 ng/L (<51)
[2025-01-17] MEDS ORDERED: ALBUMIN HUMAN 25%-12.5GM/50ML IV BOTTLE ONE (16:39)
[2025-01-17] MEDS: HEPARIN SODIUM,PORCINE 5,000 UNITS/ML VIAL IVP PRN (16:48)
[2025-01-18 03:20] VITALS: BP 112/69; PULSE 79; RESP 17; TEMP 98.1; O2SAT 100
[2025-01-18 06:15] LABS: PLATELET COUNT (AUTO) 246 K/uL (150-450); RED BLOOD CELL COUNT(AUTO) 3.63 MIL/uL (4.00-5.20); RED CELL DISTRIBUTION WIDTH 16.5 % (11.5-14.5); WHITE BLOOD COUNT (AUTO) 6.1 K/uL (4.5-11.0)
[2025-01-18 06:33] LABS: CALCIUM, TOTAL 8.3 mg/dL (8.8-10.5); CREATININE 2.48 mg/dL (0.60-1.30); GLOMERULAR FILTR. RATE CALC 19.0 mL/min (>60); GLUCOSE,RANDOM 82.0 mg/dL (70-110); SODIUM SERUM 137.0 mmol/L (136-145); UREA NITROGEN, BLOOD 14.0 mg/dL (7-18)
[2025-01-18 08:59] VITALS: BP 94/56; PULSE 79; RESP 17; TEMP 97.9; O2SAT 100
[2025-01-18] MEDS: APIXABAN 2.5 MG TABLET PO SCH (09:18)
[2025-01-18 12:22] VITALS: BP 101/67; PULSE 82; RESP 17; TEMP 97.5; O2SAT 100
[2025-01-18] MEDS: FOLIC ACID/VIT B COMPLEX AND C TABLET PO SCH (12:51)
[2025-01-18 16:13] VITALS: BP 86/64; PULSE 83; RESP 17; TEMP 98.2; O2SAT 97
[2025-01-18 20:00] VITALS: BP 91/67; PULSE 82; RESP 18; TEMP 98.2; O2SAT 99
[2025-01-19] VITALS: BP 97/77; PULSE 89; RESP 18; TEMP 97.7; O2SAT 100
[2025-01-19 04:00] VITALS: BP 96/63; PULSE 85; RESP 18; TEMP 97.7; O2SAT 99
[2025-01-19 09:59] VITALS: BP 88/91; PULSE 81; RESP 16; TEMP 97.1; O2SAT 99
[2025-01-19 11:07] LABS: PLATELET COUNT (AUTO) 254 K/uL (150-450); RED BLOOD CELL COUNT(AUTO) 3.82 MIL/uL (4.00-5.20); RED CELL DISTRIBUTION WIDTH 16.3 % (11.5-14.5); WHITE BLOOD COUNT (AUTO) 6.0 K/uL (4.5-11.0)
[2025-01-19] MEDS ORDERED: MIDO5TAB29 PO (11:10)
[2025-01-19] MEDS ORDERED: SCOP1PAT12 TP (11:10)
[2025-01-19 11:37] LABS: CALCIUM, TOTAL 8.3 mg/dL (8.8-10.5); CREATININE 3.51 mg/dL (0.60-1.30); GLOMERULAR FILTR. RATE CALC 13.0 mL/min (>60); GLUCOSE,RANDOM 77.0 mg/dL (70-110); SODIUM SERUM 136.0 mmol/L (136-145); UREA NITROGEN, BLOOD 27.0 mg/dL (7-18)
[2025-01-19 11:38] VITALS: BP 83/60; PULSE 86; RESP 20; TEMP 98.1; O2SAT 100
[2025-01-21] MEDS ORDERED: SCOPOLAMINE HYDROBROMIDE 1 MG/72 HOUR PATCH TD SCH (09:00)
== END 2025-01-19 14:20 | disposition home health service (06) | DRG 175 ==
LOC: EMS 14:32 → EDH 17:01 → 5N 21:35
PROVIDERS: ADMIT Internal Medicine; ATTEND Internal Medicine
PROC: 5A1D70Z Performance of Urinary Filtration, Intermittent, Less than 6 Hours Per Day (ICD-10-PCS; 2025-01-16)
PROC: 0W9B30Z Drainage of Left Pleural Cavity with Drainage Device, Percutaneous Approach (ICD-10-PCS; principal; 2025-01-17)
PROC: 0W9G30Z Drainage of Peritoneal Cavity with Drainage Device, Percutaneous Approach (ICD-10-PCS; 2025-01-17)
PROC: 5A1D70Z Performance of Urinary Filtration, Intermittent, Less than 6 Hours Per Day (ICD-10-PCS; 2025-01-17)
DX: I26.99 Other pulmonary embolism without acute cor pulmonale (principal); E43 Unspecified severe protein-calorie malnutrition; I50.43 Acute on chronic combined systolic (congestive) and diastolic (congestive) heart failure; J18.9 Pneumonia, unspecified organism; N18.6 End stage renal disease; I13.2 Hypertensive heart and chronic kidney disease with heart failure and with stage 5 chronic kidney disease, or end stage renal disease; I47.20 Ventricular tachycardia, unspecified; E88.09 Other disorders of plasma-protein metabolism, not elsewhere classified; I82.402 Acute embolism and thrombosis of unspecified deep veins of left lower extremity; J90 Pleural effusion, not elsewhere classified; Z99.2 Dependence on renal dialysis; K76.6 Portal hypertension; F03.90 Unspecified dementia, unspecified severity, without behavioral disturbance, psychotic disturbance, mood disturbance, and anxiety; I69.30 Unspecified sequelae of cerebral infarction; R18.8 Other ascites; Z20.822 Contact with and (suspected) exposure to COVID-19; K74.60 Unspecified cirrhosis of liver; I95.9 Hypotension, unspecified; I25.10 Atherosclerotic heart disease of native coronary artery without angina pectoris; I45.9 Conduction disorder, unspecified; Z88.0 Allergy status to penicillin; Z95.810 Presence of automatic (implantable) cardiac defibrillator; Z86.718 Personal history of other venous thrombosis and embolism; Z68.21 Body mass index [BMI] 21.0-21.9, adult; Z79.899 Other long term (current) drug therapy
CPT/HCPCS: 32555; 49083; 70450; 71045; 71275; 76942; 80048; 80076; 82105; 82271; 83605; 83735; 83880; 84145; 84484; 85025; 85610; 85730; 87040; 87081; 87340; 87804; 88108; 88305; 89051; 90935; 92610; 93005; 96361; 96365; 97116; 97163; 97530; 99291; J0696; J1644; J7030; J7050; P9041; P9046; P9047; 36415-L1; 36415-TC